=== PATIENT | male | born 1995 | race African-American/Black ===

== ENCOUNTER 2017-05-06 00:02 | Emergency (ER) | payer OTHER ==
[~2017-05-06] VITALS: Ht 180.3 cm; Wt 65.2 kg
[2017-05-06 00:16] VITALS: BP 128/77; PULSE 66; TEMP 36.8; O2SAT 98; Ht 180.3 cm; Wt 65.2 kg
--- NOTE | 2017-05-06 00:44 | EMERGENCY ROOM VISIT NOTE ---
History Report prepared by Merariibrhea: Vamsi Reddy Under the Supervision of: Dr. Maximiliano Kelsey M.D. First contact with patient: 00:26 Chief Complaint: MENTAL HEALTH EVALUATION Stated Complaint: DEPRESSED AND SPIRALING History of Present Illness The patient is a 21 year old male who presents to the Emergency Room with complaints of worsening depressive symptoms that began "a long time ago". Patient states that he was talking to his friends tonight about "being tired". He states his friends told him to come to the ER or they would call an ambulance for him. Patient states that the symptoms are caused by a mixture of school, relationships, and family issues. He denies current suicidal ideations. He admits to a history of suicidal ideations. Patient denies seeking psychiatric help in the past for his depression. Patient adds that he had a "couple beers tonight". He denies using any drugs. Patient denies taking daily medications. Patient denies taking Tylenol or Motrin recently. He denies playing sports. He states that he stays occupied "by sitting in his room". Patient adds that he is from [place]. He states that his parents do not know he is at the ER. Source of History: patient Onset: "long time ago" Position: other (Global) Timing: worsening Modifying Factors (Relieving): other (None) Note: He denies suicidal ideations. Review of Systems See HPI for pertinent positives & negatives. A total of 10 systems reviewed and were otherwise negative. Past Medical & Surgical No pertinent past medical and surgical history. Family History No pertinent family history. Social History Smoking Status: Never Smoker Occupation Status: [employer] student Current/Historical Medications No Active Prescriptions or Reported Meds Allergies Coded Allergies: No Known Allergies (Unverified , 05/06/17) Physical Exam Vital Signs Date Time Temp Pulse Resp B/P (MAP) Pulse Ox O2 Delivery O2 Flow Rate FiO2 05/06/17 00:16 36.8 66 18 128/77 98 Room Air Physical Exam GENERAL: Patient is well appearing and in no acute distress. HEENT: No acute trauma, normocephalic atraumatic, mucous membranes moist, no nasal congestion, no scleral icterus. NECK: No stridor, no adenopathy, no meningismus, trachea is midline. LUNGS: No dyspnea. Clear to auscultation and equal bilaterally. No wheeze, no rhonchi. HEART: Regular rate and rhythm. No murmurs, rubs, gallops appreciated. ABDOMEN: Soft, nontender, bowel sounds positive, no masses appreciated, no peritonitis. BACK: No midline tenderness, no CVA tenderness EXTREMITIES: Normal motion all extremities, no cyanosis, no edema. NEUROLOGIC: Alert and oriented, no acute motor or sensory deficits, no focal weakness, cranial nerves grossly intact. SKIN: No rash, no jaundice, no diaphoresis. PSYCH: Depressed, denies suicidal or homicidal ideations. Medical Decision & Procedures Laboratory Results 05/06/17 00:48 Red Blood Count 4.46, Mean Corpuscular Volume 92.6, Mean Corpuscular Hemoglobin 31.4, Mean Corpuscular Hemoglobin Concent 33.9, Mean Platelet Volume 10.2, Neutrophils (%) (Auto) 55.7, Lymphocytes (%) (Auto) 36.8, Monocytes (%) (Auto) 6.3, Eosinophils (%) (Auto) 0.5, Basophils (%) (Auto) 0.6, Neutrophils # (Auto) 4.35, Lymphocytes # (Auto) 2.88, Monocytes # (Auto) 0.49, Eosinophils # (Auto) 0.04, Basophils # (Auto) 0.05 05/06/17 00:48 Test 05/06/17 00:48 05/06/17 01:40 White Blood Count 7.82 K/uL (4.8-10.8) Red Blood Count 4.46 M/uL (4.7-6.1) Hemoglobin 14.0 g/dL (14.0-18.0) Hematocrit 41.3 % (42-52) Mean Corpuscular Volume 92.6 fL (80-100) Mean Corpuscular Hemoglobin 31.4 pg (25-34) Mean Corpuscular Hemoglobin Concent 33.9 g/dl (32-36) Platelet Count 231 K/uL (130-400) Mean Platelet Volume 10.2 fL (7.4-10.4) Neutrophils (%) (Auto) 55.7 % Lymphocytes (%) (Auto) 36.8 % Monocytes (%) (Auto) 6.3 % Eosinophils (%) (Auto) 0.5 % Basophils (%) (Auto) 0.6 % Neutrophils # (Auto) 4.35 K/uL (1.4-6.5) Lymphocytes # (Auto) 2.88 K/uL (1.2-3.4) Monocytes # (Auto) 0.49 K/uL (0.11-0.59) Eosinophils # (Auto) 0.04 K/uL (0-0.5) Basophils # (Auto) 0.05 K/uL (0-0.2) RDW Standard Deviation 41.1 fL (36.4-46.3) RDW Coefficient of Variation 12.2 % (11.5-14.5) Immature Granulocyte % (Auto) 0.1 % Immature Granulocyte # (Auto) 0.01 K/uL (0.00-0.02) Anion Gap 6.0 mmol/L (3-11) Est Creatinine Clear Calc Drug Dose 100.8 ml/min Estimated GFR () 114.9 Estimated GFR (Non- 99.1 BUN/Creatinine Ratio 11.1 (10-20) Calcium Level 9.2 mg/dl (8.5-10.1) Total Bilirubin 0.6 mg/dl (0.2-1) Aspartate Amino Transf (AST/SGOT) 20 U/L (15-37) Alanine Aminotransferase (ALT/SGPT) 19 U/L (12-78) Alkaline Phosphatase 58 U/L (45-117) Total Protein 7.5 gm/dl (6.4-8.2) Albumin 4.3 gm/dl (3.4-5.0) Globulin 3.2 gm/dl (2.5-4.0) Albumin/Globulin Ratio 1.3 (0.9-2) Thyroid Stimulating Hormone (TSH) 4.590 uIu/ml (0.300-4.500) Salicylates Level < 1.7 mg/dl (2.8-20) Acetaminophen Level < 2 ug/ml (10-30) Ethyl Alcohol mg/dL 3.0 mg/dl (0-3) Urine Color YELLOW Urine Appearance CLEAR (CLEAR) Urine pH 6.5 (4.5-7.5) Urine Specific [place] 1.033 (1.000-1.030) Urine Protein NEG (NEG) Urine Glucose (UA) NEG (NEG) Urine Ketones TRACE (NEG) Urine Occult Blood NEG (NEG) Urine Nitrite NEG (NEG) Urine Bilirubin NEG (NEG) Urine Urobilinogen NEG (NEG) Urine Leukocyte Esterase NEG (NEG) Urine WBC (Auto) 0 /hpf (0-5) Urine RBC (Auto) 0-4 /hpf (0-4) Urine Hyaline Casts (Auto) 1-5 /lpf (0-5) Urine Epithelial Cells (Auto) 0-5 /lpf (0-5) Urine Bacteria (Auto) NEG (NEG) Urine Opiates Screen NEG (NEG) Urine Methadone, Qualitative NEG (NEG) Urine Barbiturates NEG (NEG) Urine Phencyclidine (PCP) Level NEG (NEG) Ur Amphetamine/Methamphetamine NEG (NEG) MDMA (Ecstasy) Screen NEG (NEG) Urine Benzodiazepines Screen NEG (NEG) Urine Cocaine Metabolite NEG (NEG) Urine Marijuana (THC) NEG (NEG) Laboratory results as reviewed by me. ED Course 0030: The patient was evaluated in room A6. A complete history and physical exam was performed. 0247: Reevaluated the patient. Patient states that he feels safe going home and does not feel like he needs to be admitted. He does not feel like he will harm himself and agrees to call 911 if any worsening thoughts or issues come up. He states the he will follow up with [facility] psychiat[facility]. Discussed results and discharge instructions. He verbalized understanding and agreement. The patient is ready for discharge. Medical Decision Differential: Mood Disorder, Overdose, Infectious, Electrolyte Abnormality, Cardiac, Hepatic, Endocrine, Toxicologic, Neurologic, amongst other pathologies entertained. 21 yr old male arrives with complaint of worsening depression. After discussion it seems like depression has been ongoing for quite some time, just worsened over last few days or so with class load and social stressors. He has no plan for harming self, has made no act to do so and there is no 302. He is A&O, cooperative and not under the influence. His work up is benign. Stable in ED and interactive. Seen by mental health who agree safe for discharge and they will help set up outpatient. I repeated questioning with him at discharge and he is clear he wishes to go home, feels completely safe doing so, states he is not a risk of harming himself, and that he will call 911 or return if symptoms worsen. Medication Reconcilliation Current Medication List: was personally reviewed by me Blood Pressure Screening Patient's blood pressure: Normal blood pressure Blood pressure disposition: Did not require urgent referral Impression Primary Impression: Depression Scribe Attestation The scribe's documentation has been prepared under my direction and personally reviewed by me in its entirety. I confirm that the note above accurately reflects all work, treatment, procedures, and medical decision making performed by me. Departure Information Dispostion Home / Self-Care Prescriptions No Active Prescriptions or Reported Meds Referrals [facility] Patient Instructions ED Depression, My [facility] Additional Instructions We are always here to help. Call 911 or return immediately if worsening depression, thoughts of harm develop or other concerns.
[2017-05-06 01:02] LABS: BASO % 0.6 %; BASO ABS # 0.05 K/uL (0-0.2); EOS % 0.5 %; EOS ABS # 0.04 K/uL (0-0.5); HEMATOCRIT 41.3 % (42-52); IG# 0.01 K/uL (0.00-0.02); LYMPH % 36.8 %; LYMPH ABS # 2.88 K/uL (1.2-3.4); MEAN CELL VOLUME 92.6 fL (80-100); MEAN CORPUSCULAR HEMOGLOBIN 31.4 pg (25-34); MEAN CORPUSCULAR HGB CONC 33.9 g/dl (32-36); MEAN PLATELET VOLUME 10.2 fL (7.4-10.4); MONO % 6.3 %; MONO ABS # 0.49 K/uL (0.11-0.59); NEUT % 55.7 %; NEUT ABS # 4.35 K/uL (1.4-6.5); PLATELET COUNT 231 K/uL (130-400); RED CELL DISTRIBUTION WIDTH CV 12.2 % (11.5-14.5); RED CELL DISTRIBUTION WIDTH SD 41.1 fL (36.4-46.3); WHITE BLOOD COUNT 7.82 K/uL (4.8-10.8)
[2017-05-06 01:21] LABS: ALBUMIN 4.3 gm/dl (3.4-5.0); CALCIUM 9.2 mg/dl (8.5-10.1); CREATININE 1.06 mg/dl (0.60-1.40); POTASSIUM 3.6 mmol/L (3.5-5.1)
[2017-05-06 01:32] LABS: TOTAL PROTEIN 7.5 gm/dl (6.4-8.2)
== END 2017-05-06 02:56 | disposition home or self-care (01) ==
LOC: C.EDB 00:06 → C.EDA 02:56
DX: F32.9 Major depressive disorder, single episode, unspecified (principal)

== ENCOUNTER 2018-04-30 21:32 | Inpatient (IN) ==
[2018-04-30 22:07] LABS: Appearance Urine Clear (Clear); Bilirubin Urine Negative (Negative); Color Urine Yellow; Glucose Urine UA Negative (Negative); Ketones Urine Trace (Negative); Leukocyte Esterase Urine Negative (Negative); Nitrite Urine Negative (Negative); Protein Urine Negative (Negative); Specific Gravity Urine 1.025 (1.000-1.030); Urobilinogen Urine Negative (Negative)
[2018-04-30 22:25] LABS: Amphetamines+Metham, Urine Pos (Neg); Barbiturates, Urine Neg (Neg); Benzodiazepine, Urine Neg (Neg); Cocaine, Urine Neg (Neg); MDMA (Ecstacy), Urine Neg (Neg); Methadone, Urine Neg (Neg); Opiate, Urine Neg (Neg); Phencyclidine, Urine Neg (Neg)
[2018-04-30 23:18] LABS: Basophils # (auto) 0.05 K/uL (0-0.2); Basophils % (auto) 0.8 %; Eosinophils # (auto) 0.04 K/uL (0-0.5); Eosinophils % (auto) 0.7 %; Hematocrit (blood only) 40.4 % (42-52); Hemoglobin 13.8 g/dL (14.0-18.0); Immature Granulocytes # (auto) 0.01 K/uL (0.00-0.02); Immature Granulocytes % (auto) 0.2 %; Lymphocytes % (auto) 48.9 %; Mean Corpuscular Hgb Conc 34.2 g/dL (32-36); Mean Corpuscular Volume 93.3 fL (80-100); Mean Platelet Volume 11.1 fL (7.4-10.4); Monocytes # (auto) 0.36 K/uL (0.11-0.59); Monocytes % (auto) 5.9 %; Neutrophils # (auto) 2.68 K/uL (1.4-6.5); Neutrophils % (auto) 43.5 %; Platelet Count 231 K/uL (130-400); RDW Coefficient of Variation 12.2 % (11.5-14.5); RDW Standard Deviation 41.2 fL (36.4-46.3); Red Blood Count 4.33 M/uL (4.7-6.1); White Blood Count 6.14 K/uL (4.8-10.8)
[2018-04-30 23:34] LABS: Albumin Level 4.1 gm/dl (3.4-5.0); BUN Creatinine Ratio 12.8 (10-20); Calcium 8.7 mg/dl (8.5-10.1); Creatinine Clr Calc Pharmacy 99.3 ml/min; Est GFR (African American) 114.1; Est GFR (Non-African American) 98.4; Potassium 3.6 mmol/L (3.5-5.1)
[2018-04-30 23:45] LABS: Albumin Globulin Ratio 1.3 (0.9-2); Bilirubin,Total 0.5 mg/dl (0.2-1); Total Protein 7.1 gm/dl (6.4-8.2)
[2018-04-30 23:52] LABS: Acetaminophen < 2 ug/ml (10-30); Salicylate < 1.7 mg/dl (2.8-20)
--- NOTE | 2018-05-01 02:53 | Emergency Department Note ---
Entered by Kady Kerr acting as a scribe for History of Present Illness General Chief complaint: Mental Health Evaluation Stated complaint: MENTAL HEALTH Time Seen by Provider: 04/30/18 21:40 Source: patient History of Present Illness Onset (ago): month(s) (several) Location: head Pain Consistency: + other (episode) Quality: + other (mental health evaluation) Associated symptoms: + other (positive difficulty sleeping; positive loss of interest in activities; positive change in energy level; positive difficulty concentrating; positive eating less; positive feeling guilty; negatie cutting; negative thoughts of hurting others) The patient is a 22 year old male who presents to the Emergency Room with complaints of an episode of mental health evaluation. The patient states that he has had constant depression, anxiety, and suicidal thoughts for several months. The patient states that he has difficulty sleeping, loss of interest in activities, sometimes has a change in energy level, difficulty concentrating, and eating less. The patient states that he has been feeling guilty about his actions. The patient states that he has not taken more than his prescribed medications. The patient denies any recent cutting, but states that he has now been tying string tightly around his wrist to cause pain. The patient states that he has access to knives at home. The patient denies thoughts of hurting others. Home Medications Home Medications Medication Instructions Recorded Confirmed Type clonazepam 0.5 mg PO BID 03/24/18 04/30/18 History prazosin 1 mg PO DAILY 03/24/18 04/30/18 History sertraline [Zoloft] 100 mg PO DAILY 03/24/18 04/30/18 History zolpidem [Ambien] 10 mg PO HS 03/24/18 04/30/18 History dextroamphetamine-amphetamine 20 mg PO DAILY 04/30/18 04/30/18 History [Adderall XR] dextroamphetamine-amphetamine 40 mg PO DAILY 04/30/18 04/30/18 History [Adderall] Allergies Allergy/AdvReac Type Severity Reaction Status Date / Time No Known Allergies Allergy Unverified 04/30/18 23:46 Past Med/Surg History Social History Feels Safe at Home: Yes Smoking Status: Current every day smoker Tobacco Type: cigarettes and e- cigarettes Preferred Language: Telugu Review of Systems See HPI for pertinent positives & negatives. and A total of 10 systems reviewed and were otherwise negative Physical Exam Vital Signs Vital Signs - 24 hr 04/30/18 21:35 04/30/18 23:41 Temperature 36.8 C Temperature Source Oral Sepsis Recent Fever Within 48 Hours No Sepsis Action Taken by Nursing No Action Required Pulse Rate 75 Pulse Rate [Finger] 68 Respiratory Rate 16 18 Respiratory Effort / Characteristics Non-Labored Spontaneous Respiratory Depth Normal Blood Pressure 128/78 Blood Pressure [Right Arm] 107/66 Blood Pressure Mean 94 Blood Pressure Mean [Right Arm] 79 Pulse Oximetry 98 99 Oxygen Delivery Method Room Air Room Air GENERAL: The patient is oriented to person, place, and time. Appears well- developed and well-nourished. Does not appear distressed. HENT: Exam performed. Head: Normocephalic and atraumatic. Right Ear: External ear normal. No mastoid tenderness. Left Ear: External ear normal. No mastoid tenderness. Mouth/Throat: The oropharynx is clear and moist. No trismus in the jaw. No dental abscesses or uvula swelling. No oropharyngeal exudate or tonsillar abscesses. EYES: Conjunctivae and EOM are normal. Pupils are equal, round, and reactive to light. Right eye exhibits no discharge. Left eye exhibits no discharge. No scleral icterus. NECK: Normal range of motion. Neck supple. No JVD present. No spinous process tenderness present. No carotid bruit present. No rigidity. No tracheal deviation and normal range of motion present. No Brudzinski's sign and no Kernig 's sign noted. CV: Normal rate, regular rhythm, normal heart sounds and intact distal pulses. There is no peripheral edema. Palpable radial pulses bue. PULM/CHEST: Effort normal and breath sounds normal. No respiratory distress. No stridor. There are no wheezes or rales. Chest Wall: Patient exhibits no tenderness. ABD: The abdomen is soft. Bowel sounds are normal. There is no distension. No mass is present. There is no tenderness. There is no rebound, no guarding, no Pruitt's sign and no tenderness at McBurney's point. Rovsig negative MUSC/SKEL: Normal range of motion. There is no peripheral edema, tenderness or deformity. LYMPH: No cervical adenopathy. NEURO: Patient is alert and oriented to person, place, and time. Normal strength. No cranial nerve deficit or sensory deficit. Coordination and gait normal. GCS eye subscore is 4. GCS verbal subscore is 5. GCS motor subscore is 6. cerbellar tests wnl. SKIN: Skin is warm and dry. Patient is not diaphoretic. PSYCH: The patient is suicidal and depressed. Behavior is normal. Judgment and thought content normal. Course 2149: Past medical records reviewed. The patient was evaluated in room A8, and a complete history and physical examination were performed. 0243: vss. patient cleared medically. awaiting psychiatric eval. case signed out to Dr. Kelsey. Medical Decision Making Medical Records Attestation: I reviewed the patient's medical records. Home Medications Current Medication List: was personally reviewed by me Laboratory Data Attestation: I reviewed the patient's lab results. Result diagrams: 04/30/18 22:05 04/30/18 22:05 Lab Results 04/30/18 04/30/18 04/30/18 Range/Units 21:43 21:43 22:05 WBC 6.14 (4.8-10.8) K/uL RBC 4.33 L (4.7-6.1) M/uL Hgb 13.8 L (14.0-18.0) g/dL Hct 40.4 L (42-52) % MCV 93.3 (80-100) fL MCH 31.9 (25-34) pg MCHC 34.2 (32-36) g/dL RDW Std Deviation 41.2 (36.4-46.3) fL RDW Coeff of [place] 12.2 (11.5-14.5) % Plt Count 231 (130-400) K/uL MPV 11.1 H (7.4-10.4) fL Immature Gran % (Auto) 0.2 % Neut % (Auto) 43.5 % Lymph % (Auto) 48.9 % [place] % (Auto) 5.9 % Eos % (Auto) 0.7 % Baso % (Auto) 0.8 % Immature Gran # (Auto) 0.01 (0.00-0.02) K/uL Neut # (Auto) 2.68 (1.4-6.5) K/uL Lymph # (Auto) 3.00 (1.2-3.4) K/uL [place] # (Auto) 0.36 (0.11-0.59) K/uL Eos # (Auto) 0.04 (0-0.5) K/uL Baso # (Auto) 0.05 (0-0.2) K/uL Sodium (136-145) mmol/L Potassium (3.5-5.1) mmol/L Chloride (98-107) mmol/L Carbon Dioxide (21-32) mmol/L Anion Gap (3-11) BUN (7-18) mg/dl Creatinine (0.6-1.4) mg/dl Est Cr Clr Drug Dosing ml/min Est GFR ( Amer) Est GFR (Non-Af Amer) BUN/Creatinine Ratio (10-20) Glucose (70-99) mg/dl Calcium (8.5-10.1) mg/dl Total Bilirubin (0.2-1) mg/dl AST (15-37) U/L ALT (12-78) U/L Alkaline Phosphatase (45-117) U/L Total Protein (6.4-8.2) gm/dl Albumin (3.4-5.0) gm/dl Globulin (2.5-4.0) gm/dl Albumin/Globulin Ratio (0.9-2) TSH (0.300-4.500) uIu/ml Urine Color Yellow Urine Appearance Clear (Clear) Urine pH 7.0 (4.5-7.5) Ur Specific [place] 1.025 (1.000-1.030) Urine Protein Negative (Negative) Urine Glucose (UA) Negative (Negative) Urine Ketones Trace H (Negative) Urine Blood Negative (Negative) Urine Nitrite Negative (Negative) Urine Bilirubin Negative (Negative) Urine Urobilinogen Negative (Negative) Ur Leukocyte Esterase Negative (Negative) Salicylates (2.8-20) mg/dl Urine Opiates Screen Neg (Neg) Ur Methadone, Qual Neg (Neg) Acetaminophen (10-30) ug/ml Urine Barbiturates Neg (Neg) Ur Phencyclidine (PCP) Neg (Neg) U Amphetamin/Meth Scrn Pos H (Neg) MDMA (Ecstasy) Screen Neg (Neg) U Benzodiazepines Scrn Neg (Neg) Ur Cocaine Metabolite Neg (Neg) U Marijuana (THC) Screen Pos H (Neg) Ethyl Alcohol mg/dL (0-3) mg/dl 04/30/18 04/30/18 04/30/18 Range/Units 22:05 22:05 22:05 WBC (4.8-10.8) K/uL RBC (4.7-6.1) M/uL Hgb (14.0-18.0) g/dL Hct (42-52) % MCV (80-100) fL MCH (25-34) pg MCHC (32-36) g/dL RDW Std Deviation (36.4-46.3) fL RDW Coeff of [place] (11.5-14.5) % Plt Count (130-400) K/uL MPV (7.4-10.4) fL Immature Gran % (Auto) % Neut % (Auto) % Lymph % (Auto) % [place] % (Auto) % Eos % (Auto) % Baso % (Auto) % Immature Gran # (Auto) (0.00-0.02) K/uL Neut # (Auto) (1.4-6.5) K/uL Lymph # (Auto) (1.2-3.4) K/uL [place] # (Auto) (0.11-0.59) K/uL Eos # (Auto) (0-0.5) K/uL Baso # (Auto) (0-0.2) K/uL Sodium 139 (136-145) mmol/L Potassium 3.6 (3.5-5.1) mmol/L Chloride 105 (98-107) mmol/L Carbon Dioxide 30 (21-32) mmol/L Anion Gap 5.0 (3-11) BUN 14 (7-18) mg/dl Creatinine 1.06 (0.6-1.4) mg/dl Est Cr Clr Drug Dosing 99.3 ml/min Est GFR ( Amer) 114.1 Est GFR (Non-Af Amer) 98.4 BUN/Creatinine Ratio 12.8 (10-20) Glucose 82 (70-99) mg/dl Calcium 8.7 (8.5-10.1) mg/dl Total Bilirubin 0.5 (0.2-1) mg/dl AST 28 (15-37) U/L ALT 22 (12-78) U/L Alkaline Phosphatase 57 (45-117) U/L Total Protein 7.1 (6.4-8.2) gm/dl Albumin 4.1 (3.4-5.0) gm/dl Globulin 3.0 (2.5-4.0) gm/dl Albumin/Globulin Ratio 1.3 (0.9-2) TSH 5.680 H (0.300-4.500) uIu/ml Urine Color Urine Appearance (Clear) Urine pH (4.5-7.5) Ur Specific [place] (1.000-1.030) Urine Protein (Negative) Urine Glucose (UA) (Negative) Urine Ketones (Negative) Urine Blood (Negative) Urine Nitrite (Negative) Urine Bilirubin (Negative) Urine Urobilinogen (Negative) Ur Leukocyte Esterase (Negative) Salicylates < 1.7 L (2.8-20) mg/dl Urine Opiates Screen (Neg) Ur Methadone, Qual (Neg) Acetaminophen < 2 L (10-30) ug/ml Urine Barbiturates (Neg) Ur Phencyclidine (PCP) (Neg) U Amphetamin/Meth Scrn (Neg) MDMA (Ecstasy) Screen (Neg) U Benzodiazepines Scrn (Neg) Ur Cocaine Metabolite (Neg) U Marijuana (THC) Screen (Neg) Ethyl Alcohol mg/dL < 3.0 (0-3) mg/dl Blood Pressure Blood Pressure Findings: Normal blood pressure MDM Narrative vss. patient cleared medically. awaiting psychiatric eval. case signed out to Dr. Kelsey. Impression & Plan Depression Discharge Plan Visit Data Chief Complaint: Mental Health Evaluation Stated Complaint: MENTAL HEALTH ED Provider: Maximiliano Kelsey Discharge Problem: Depression Patient Disposition: Still a Patient Forms Stand Alone Forms: My [facility] Prescriptions Prescriptions: No Action prazosin 1 mg capsule 1 mg PO DAILY RF: 0 clonazepam 0.5 mg tablet 0.5 mg PO BID RF: 0 sertraline [Zoloft] 100 mg Tablet 100 mg PO DAILY RF: 0 zolpidem [Ambien] 10 mg Tablet 10 mg PO HS RF: 0 dextroamphetamine-amphetamine [Adderall XR] 20 mg Capsule,Extended Release 24hr 20 mg PO DAILY RF: 0 dextroamphetamine-amphetamine [Adderall] 20 mg Tablet 40 mg PO DAILY RF: 0 Referrals Referrals: [facility] [Primary Care Provider] - The scribe's documentation has been prepared under my direction and personally reviewed by me in its entirety. I confirm that the note above accurately reflects all work, treatment, procedures, and medical decision making performed by me.
[2018-05-01] MEDS ORDERED: SODIUM CHLORIDE 0.65% NA SOLN 45 ML (OCEAN) PRN (05:27)
[2018-05-01] MEDS ORDERED: BISMUTH SUBSALICYLATE PER ML OMNICELL CHARGE PO PRN (05:27)
[2018-05-01] MEDS ORDERED: MAGNESIUM HYDROXIDE SUSP 30 ML UDC PO PRN (05:27)
[2018-05-01] MEDS ORDERED: ALUMINUM/MAGNESIUM SUSP 30 ML UDC PO PRN (05:27)
[2018-05-01] MEDS ORDERED: ACETAMINOPHEN 325 MG TAB PO PRN (05:27)
[2018-05-01] MEDS ORDERED: clonazePAM 0.5 MG TAB PO PRN ×2 (05:28→13:00)
--- NOTE | 2018-05-01 06:46 | Emergency Department Note ---
ED Visit Note ED Physician Sign Out Note: 22 yr old male with worsening depression who arrived earlier in the evenign requesting mental health evaluation and treatment. Initially evaluated and medically cleared by Dr Bermudez who signed patient out to me pending mental health evaluation. Stable without issue overnight and accepted to [address] [place] [address] for further management. Maximiliano Kelsey MD
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
[2018-05-01] MEDS ORDERED: NICOTINE POLACRILEX 2 MG GUM MT PRN (13:01)
[2018-05-01] MEDS: lamoTRIgine 25 MG TAB PO SCH (21:21)
[2018-05-02 08:29] LABS: T4 Free Thyroxine 0.95 ng/dl (0.8-1.6)
[2018-05-02] MEDS: SERTRALINE HCL 100 MG TABLET PO SCH (09:12)
--- NOTE | 2018-05-02 14:01 | Psychiatric Progress Note ---
Date of Service May 02, 2018 Impression / Recommendations Impression Adjusting to the support and structure of the milieu, but mood remains irritable , with SI. Lamictal initiated yesterda and will follow a standard titration to avoid side effects. Will also focus on coping strategies, arrange for meeting with girlfriend with whom he lives and aftercare. (1) Bipolar II disorder with rapid cyclin/6 Differential includes major depressive disorder, GHANSHYAM - Reduce Zoloft to 50 mg daily - Hold Adderall - Start Lamictal 25 mg HS - Q 15 min checks for safety - Encourage participation in group and individual counseling - Obtain records from OP providers and coordinate aftercare - Contact Office of Student Affairs as needed - Assist the patient to explore healthy coping strategies - Safety planning 05/02 - Continue current meds - Continue to explore healthy coping strategies - Family meeting with girlfriend (2) Cannabis abuse: 05/01 - Recommend abstinence (3) Tobacco abuse disorder: 05/01 - Will provide Nicorette gum for nicotine withdrawal (4) Elevated TSH: 05/01 - Will repeat with a free T4 05/02 - TSH and free T4 today WNL. Inventory Assets Strengths: Willingness to engage in treatment, lives with girlfriend Needs: Healthy coping strategies Risk Factors Assessment Male: Yes : No Do You Have Access To A Gun?: No Health Problems: No Mental Health Diagnoses: Yes Substance Use Disorders: Yes Previous Attempt: No Family History of Suicide: No Previous Psychiatric Hospitalization: No Smoker: Yes Protective Factors Assessment : No Responsible for Young Children: No Employed: No Stable Relationships: Yes Supportive Family: Yes Good Rapport with Provider: Yes Interval History Identifying Information 22 yo male, admitted voluntarily with depression, mood swings, and suicidality in the setting of school and financial stress. Chief Complaint "I've been irritated all day. ". Review of Systems Sleep Information Total Hours of Sleep: 6 Sleep Comments: pt given vistaril per rn. pt on q-15 minute checks Meal Information Percent Meal Consumed - Breakfast: 80 Percent Meal Consumed - Lunch: 90 Percent Meal Consumed - Dinner: 75 Subjective Subjective Patient was seen & assessed and interval progress reviewed with Treatment Team. The patient says that he has felt irritable all day after being woken up for labs that took 3 painful sticks. He has remained irritable saying that he has little patience for his peers. He admits that it triggered thoughts of not wanting to be alive "but I talked myself out of it". He also just took a prn klonopin that he thinks is helping. He spoke with his GF last evening, but she did not visit. He does not want his parents involved in his treatment. He recieved his first dose of Lamictal, denies side effects. He rates his mood 3/ 10 Physical Exam Psychiatric Orientation: alert and cooperative Apperance: appropriately dressed and appropriately groomed Eye Contact: + fair eye contact Motor Behavior: steady gait and station and no abnormal motor movements Speech: normal rate/rhythm/volume of speech Affect: + depressed affect and + flat affect Mood: + irritable mood Thought Process: goal directed thought process Thought Content: reality based without delusions Suicidal Thoughts: denies suicidal plan and denies suicidal intent; + reports suicidal thoughts Homicidal Thoughts: denies homicidal thoughts Hallucinations: no auditory hallucinations and no visual hallucinations Cognition: recent memory grossly intact, remote memory grossly intact, attention grossly intact and language grossly intact Estimated Intelligence: average estimated intelligence Insight: + impaired insight Judgement: + impaired judgement Vital Signs (Past 24 Hours) Last Vital Signs Temp 36.5 C 05/02/18 06:45 Pulse 65 05/02/18 06:46 Resp 16 05/02/18 06:45 BP 100/67 05/02/18 06:46 Pulse Ox 99 05/01/18 05:31 Results & Data Laboratory Results Laboratory Results - last 24 hr 05/02/18 07:25 TSH 2.100 Free T4 0.95 Current Inpatient Medications Current Inpatient Medications: Current Inpatient Medications Acetaminophen (Tylenol) 650 mg PO Q4H PRN PRN Reason: Headache or Minor Fever Stop: 05/31/18 05:26 Al Hydrox/Mg Hydrox/Simethicone (Maalox) 30 ml PO Q4H PRN PRN Reason: GI Upset Stop: 05/31/18 05:26 Bismuth Subsalicylate (Kaopectate) 15 ml PO PRN PRN PRN Reason: Loose Stool Stop: 05/31/18 05:26 Clonazepam (Klonopin) 0.5 mg PO BID PRN PRN Reason: Anxiety Stop: 05/31/18 05:27 Last Admin: 05/02/18 12:06 Dose: 0.5 mg Hydroxyzine HCl (Vistaril) 50 mg PO HSZ PRN PRN Reason: Insomnia Stop: 05/31/18 05:26 Last Admin: 05/01/18 23:05 Dose: 50 mg Hydroxyzine HCl (Vistaril) 25 mg PO Q4H PRN PRN Reason: Anxiety Stop: 05/31/18 05:26 Lamotrigine (Lamictal) 25 mg PO HS GOKUL Stop: 05/31/18 21:59 Last Admin: 05/01/18 21:21 Dose: 25 mg Magnesium Hydroxide (Milk Of Magnesia) 30 ml PO DAILY PRN PRN Reason: Heartburn Stop: 05/31/18 05:26 Nicotine Polacrilex (Nicorette 2mg) 1 piece MT PRN PRN PRN Reason: nicotine withdrawal Stop: 05/31/18 13:00 Sertraline HCl (Zoloft) 50 mg PO DAILY GOKUL Stop: 06/01/18 08:59 Last Admin: 05/02/18 09:12 Dose: 50 mg Sodium Chloride ([place] Nasal) 1 - 2 sprays NA PRN PRN PRN Reason: Nasal Dryness/Congestion Stop: 05/31/18 05:26 Post Discharge Appointments Primary Care Physician Name Of Family Doctor: Denies Psychiatrist Name of Psychiatrist: [facility] - Dr Chadwick MD Psychiatrist's Psychiatric Appointment Comment: [address], [address], [address], [place] [address] Therapist Name of Therapist: Kia Wall [facility] Therapist's Date of Therapist Appointment: 05/07/18 Time of Therapist Appointment: 2pm Therapy Appointment Comment: [address] [facility] [address], [facility] [id number] Learning Disabilities Teacher Name of Learning Disabilities Teacher: [facility] Phone Number for Learning Disabilities Teacher: [phone] Date of Appointment with Learning Disabilities Teacher: 05/06/18 Time of Appointment with Learning Disabilities Teacher: 1:30pm Case Management Appointment Comment: [address] [place] [address] CPT Code CPT Code 57923
[2018-05-02] MEDS: lamoTRIgine 25 MG TAB PO SCH (21:08)
--- NOTE | 2018-05-03 09:49 | Psychiatric Progress Note ---
Date of Service May 03, 2018 Impression / Recommendations Impression Admittedly less irritable today. Seen interacting with peers and participating in programming. Denies any medication concerns or side effects, so will continue sertraline 50mg and lamotrigine at standard titration. Meeting scheduled with girlfriend tomorrow, he denies anxiety surrounding this or specific topics he wishes to discuss. Mood reportedly improving, but is still unable to deny SI admitting to thoughts as recently as yesterday. He is at increased risk of harm to self if discharged prematurely without adequate involvement of supports and aftercare planning. (1) Bipolar II disorder with rapid cyclin/6 Differential includes major depressive disorder, GHANSHYAM - Reduce Zoloft to 50 mg daily - Hold Adderall - Start Lamictal 25 mg HS - Q 15 min checks for safety - Encourage participation in group and individual counseling - Obtain records from OP providers and coordinate aftercare - Contact Office of Student Affairs as needed - Assist the patient to explore healthy coping strategies - Safety planning 05/02 - Continue current meds - Continue to explore healthy coping strategies - Family meeting with girlfriend 05/03 - Continue current medications - Commended on group participation today - Family meeting with girlfriend scheduled for tomorrow - Solidify aftercare plans (2) Cannabis abuse: 05/01 - Recommend abstinence (3) Tobacco abuse disorder: 05/01 - Will provide Nicorette gum for nicotine withdrawal (4) Elevated TSH: 05/01 - Will repeat with a free T4 05/02 - TSH and free T4 today WNL. Inventory Assets Strengths: Willingness to engage in treatment, lives with girlfriend Needs: Healthy coping strategies Risk Factors Assessment Male: Yes : No Do You Have Access To A Gun?: No Health Problems: No Mental Health Diagnoses: Yes Substance Use Disorders: Yes Previous Attempt: No Family History of Suicide: No Previous Psychiatric Hospitalization: No Smoker: Yes Protective Factors Assessment : No Responsible for Young Children: No Employed: No Stable Relationships: Yes Supportive Family: Yes Good Rapport with Provider: Yes Interval History Identifying Information 22 yo male, admitted voluntarily with depression, mood swings, and suicidality in the setting of school and financial stress. Chief Complaint "Um...better today. A lot better than yesterday". Review of Systems Notes Constitutional: denied Cardiovascular: denied Respiratory: denied Gastrointestinal: denied Neurological: denied Psychiatric: denies symptoms other than stated above Total of at least 10 systems reviewed, pertinent positives as above and in HPI. Sleep Information Total Hours of Sleep: 6.25 Sleep Comments: pt. requested and received a prn hs dose of vistaril for sleep aid Meal Information Percent Meal Consumed - Breakfast: 80 Percent Meal Consumed - Lunch: 90 Percent Meal Consumed - Dinner: 100 Subjective Subjective Patient was seen & assessed and interval progress reviewed with Treatment Team. Staff reports the patient has continued to appear depressed. He is scheduled fro a meeting with his girlfriend tomorrow. Pt states he is doing well today. He admits to being agitated yesterday, but has not noticed that feeling as much today. He states he if finding groups helpful for encouraging socialization and feels that his "self worth" has been improving as well. He states, "it encouraging to hear people's thoughts about things that I share." Pt's girlfriend has been visiting regularly and is planning to attend a support meeting tomorrow. Pt denies any specific concerns today. He states his outlook is more optimistic, not outright denying SI, but stating, "I'm starting to see the value in life more." SI occurs when he is unable to distract himself with groups or other activities. Physical Exam Psychiatric Orientation: alert, oriented x 3 and cooperative Apperance: appropriately dressed and appropriately groomed Eye Contact: good eye contact Motor Behavior: steady gait and station and no abnormal motor movements Speech: normal rate/rhythm/volume of speech Affect: + depressed affect (but smiling on occasion) Mood: + depressed mood ("better than yesterday" and "lower when I'm not distracted with things") Thought Process: goal directed thought process, linear/logical thought process and clear/coherent thought process Thought Content: reality based without delusions Suicidal Thoughts: + reports suicidal thoughts (hopelessness reportedly improving, but unable to clearly deny SI, "well, I guess when I was in the shower I was thinking about it") Homicidal Thoughts: denies homicidal thoughts Hallucinations: no auditory hallucinations and no visual hallucinations Cognition: recent memory grossly intact, remote memory grossly intact, attention grossly intact and language grossly intact Estimated Intelligence: consistent with education level Insight: + fair insight Judgement: + fair judgement Vital Signs (Past 24 Hours) Last Vital Signs Temp 36.6 C 05/03/18 06:37 Pulse 83 05/03/18 06:37 Resp 16 05/03/18 06:37 BP 99/62 L 05/03/18 06:37 Pulse Ox 99 05/01/18 05:31 Results & Data Current Inpatient Medications Current Inpatient Medications: Current Inpatient Medications Acetaminophen (Tylenol) 650 mg PO Q4H PRN PRN Reason: Headache or Minor Fever Stop: 05/31/18 05:26 Al Hydrox/Mg Hydrox/Simethicone (Maalox) 30 ml PO Q4H PRN PRN Reason: GI Upset Stop: 05/31/18 05:26 Bismuth Subsalicylate (Kaopectate) 15 ml PO PRN PRN PRN Reason: Loose Stool Stop: 05/31/18 05:26 Clonazepam (Klonopin) 0.5 mg PO BID PRN PRN Reason: Anxiety Stop: 05/31/18 05:27 Last Admin: 05/02/18 12:06 Dose: 0.5 mg Hydroxyzine HCl (Vistaril) 50 mg PO HSZ PRN PRN Reason: Insomnia Stop: 05/31/18 05:26 Last Admin: 05/02/18 23:35 Dose: 50 mg Hydroxyzine HCl (Vistaril) 25 mg PO Q4H PRN PRN Reason: Anxiety Stop: 05/31/18 05:26 Lamotrigine (Lamictal) 25 mg PO HS GOKUL Stop: 05/31/18 21:59 Last Admin: 05/02/18 21:08 Dose: 25 mg Magnesium Hydroxide (Milk Of Magnesia) 30 ml PO DAILY PRN PRN Reason: Heartburn Stop: 05/31/18 05:26 Nicotine Polacrilex (Nicorette 2mg) 1 piece MT PRN PRN PRN Reason: nicotine withdrawal Stop: 05/31/18 13:00 Sertraline HCl (Zoloft) 50 mg PO DAILY GOKUL Stop: 06/01/18 08:59 Last Admin: 05/02/18 09:12 Dose: 50 mg Sodium Chloride ([place] Nasal) 1 - 2 sprays NA PRN PRN PRN Reason: Nasal Dryness/Congestion Stop: 05/31/18 05:26 Post Discharge Appointments Primary Care Physician Name Of Family Doctor: Denies Psychiatrist Name of Psychiatrist: [facility] - Dr Chadwick MD Psychiatrist's Psychiatric Appointment Comment: [address], [address], [address], [place] [address] Therapist Name of Therapist: [facility] Therapist's Date of Therapist Appointment: 05/07/18 Time of Therapist Appointment: 2pm Therapy Appointment Comment: [address], [place] [address] Account Support Manager Name of Account Support Manager: [facility] - [facility] Phone Number for Account Support Manager: [phone] Date of Appointment with Account Support Manager: 05/06/18 Time of Appointment with Account Support Manager: 1:30pm Case Management [facility]ment [facility] [address] [facility] [place] [address] CPT Code CPT Code 31070
[2018-05-03] MEDS: SERTRALINE HCL 100 MG TABLET PO SCH (09:52)
[2018-05-03] MEDS: lamoTRIgine 25 MG TAB PO SCH (21:11)
[2018-05-03 23:21] LABS: Amphetamine Urine, Confirm 9770 NG/ML (CUTOF=250); Marijuana Quant, GCMS Urine 105 NG/ML (CUTOFF=5)
[2018-05-04] MEDS: SERTRALINE HCL 50 MG TABLET PO SCH (08:41)
--- NOTE | 2018-05-04 12:14 | Psychiatric Progress Note ---
Date of Service May 04, 2018 Impression / Recommendations Impression Patient is stating he is not feeling as poorly but not fully well, seems to have a veneer of sociability when with peers but quickly labile to tears and sadness when asked more pointed questions about area where he feels he is failing. Affirmed his willingness to begin to talk about this. Continue sertraline 50mg and lamictal 25mg standard titration with movement to 50m on , in the meantime will move lamictal to AM dosing by taking 12.5mg tonight and 25mg starting tomorrow AM to put on same schedule as sertraline. DIscussed option of doxepin to try for sleep,25mg is lowest dose inpatient. .Mood reportedly improving, but is still unable to deny SI admitting to thoughts as recently as yesterday. He is at increased risk of harm to self if discharged prematurely without adequate involvement of supports and aftercare planning. (1) Bipolar II disorder with rapid cyclin/6 Differential includes major depressive disorder, GHANSHYAM - Reduce Zoloft to 50 mg daily - Hold Adderall - Start Lamictal 25 mg HS - Q 15 min checks for safety - Encourage participation in group and individual counseling - Obtain records from OP providers and coordinate aftercare - Contact Office of Student Affairs as needed - Assist the patient to explore healthy coping strategies - Safety planning 05/02 - Continue current meds - Continue to explore healthy coping strategies - Family meeting with girlfriend 05/03 and 05/03 - Continue current medications - Commended on group participation today - Family meeting with girlfriend scheduled for tomorrow - Solidify aftercare plans - 05/04 trial of doxepin for sleep (2) Cannabis abuse: 05/01 - Recommend abstinence (3) Tobacco abuse disorder: 05/01 - Will provide Nicorette gum for nicotine withdrawal (4) Elevated TSH: 05/01 - Will repeat with a free T4 05/02 - TSH and free T4 today WNL. Inventory Assets Strengths: Willingness to engage in treatment, lives with girlfriend Needs: Healthy coping strategies Risk Factors Assessment Male: Yes : No Do You Have Access To A Gun?: No Health Problems: No Mental Health Diagnoses: Yes Substance Use Disorders: Yes Previous Attempt: No Family History of Suicide: No Previous Psychiatric Hospitalization: No Smoker: Yes Protective Factors Assessment : No Responsible for Young Children: No Employed: No Stable Relationships: Yes Supportive Family: Yes Good Rapport with Provider: Yes Interval History Identifying Information 22 yo male, admitted voluntarily with depression, mood swings, and suicidality in the setting of school and financial stress. Chief Complaint "I was irritable this AM, then anxious and now I feel a little bit better". Review of Systems Sleep Information Total Hours of Sleep: 7 Sleep Comments: pt. requested and received a prn hs dose of vistaril for sleep aid Meal Information Percent Meal Consumed - Breakfast: 100 Percent Meal Consumed - Lunch: 100 Percent Meal Consumed - Dinner: 100 Subjective Subjective Patient was seen & assessed and interval progress reviewed with Treatment Team Staff notes patient is "less agitated" using patinet's words, but ongoing "irritability" about hi He has plan for meeting [facility] GF today as part of his family meeting. He was asking about prazosin having taken this in the past 2- 3mg/hs. Met with patient he notes he did not sleep well last night did not take hydroxyzine to avoid AM hangover and irritabilty that occurs when he is groggy. Instead he woke several times, reporting longstanding vivid dreams that are moreson on sertraline (no change with lamictal 25mg to date), and so this AM was tired and irritated with individuals talking to his this AM. He was then anxious about his family meeting, but "now I feel better." He notes that he took prazosin for vivid dreams "some things that make me anxious, such as dreaming that my GF has done something to hurt me then waking up and obsessing about it" He states the prazosin 1mg did not help, the 2-3 mg helped sometime alongside Ambien but he would wake in the morning feeling "poorly...not well." He feels the vistaril helps but causesAM lag He has trial ambien, atarax, gabapentin and trazodone (AM grogginess). His mood is "variable" as noting above and he become tearful holding back when asked what he wants to do about school after discharge. He states "that is something I was trying to sort through in my family meeting and need to keep thinking about...I have work to catch up on and don't feel I can jump right in..." He is motivated to work with his therapist at [facility] and to retutn to Dr Genao but plans to seek out alternative psychiatric care overtime. Physical Exam Psychiatric Orientation: alert, oriented x 3 and cooperative Apperance: appropriately dressed and appropriately groomed Eye Contact: good eye contact Motor Behavior: steady gait and station and no abnormal motor movements Speech: normal rate/rhythm/volume of speech Affect: + depressed affect (but smiling on occasion, tearful when asked a pointed questions revealing possibly a superficial nature to his smiles and affability) and + anxious affect Mood: + depressed mood ("getting better but still variable it moves depending on what is happening"), + anxious mood and + irritable mood Thought Process: goal directed thought process, linear/logical thought process and clear/coherent thought process Thought Content: reality based without delusions Suicidal Thoughts: denies suicidal plan and denies suicidal intent; + reports suicidal thoughts (hopelessness is improving, but unable to clearly deny SI noting it is still on his mind in a vague way but denies overt intention or plan this moment) Homicidal Thoughts: denies homicidal thoughts Hallucinations: no auditory hallucinations and no visual hallucinations Cognition: recent memory grossly intact, remote memory grossly intact, attention grossly intact and language grossly intact Estimated Intelligence: average estimated intelligence and consistent with education level Insight: + fair insight Judgement: + fair judgement Vital Signs (Past 24 Hours) Last Vital Signs Temp 36.7 C 05/04/18 06:00 Pulse 67 05/04/18 07:02 Resp 16 05/04/18 06:00 BP 99/66 L 05/04/18 07:02 Pulse Ox 99 05/01/18 05:31 Results & Data Laboratory Results Laboratory Results - last 24 hr 04/30/18 21:43 U Amphetamines Confirm 9770 A U Methamphetamin Confrm NEGATIVE U Marijuana THC Carboxy 105 A Current Inpatient Medications Current Inpatient Medications: Current Inpatient Medications Acetaminophen (Tylenol) 650 mg PO Q4H PRN PRN Reason: Headache or Minor Fever Stop: 05/31/18 05:26 Al Hydrox/Mg Hydrox/Simethicone (Maalox) 30 ml PO Q4H PRN PRN Reason: GI Upset Stop: 05/31/18 05:26 Bismuth Subsalicylate (Kaopectate) 15 ml PO PRN PRN PRN Reason: Loose Stool Stop: 05/31/18 05:26 Clonazepam (Klonopin) 0.5 mg PO BID PRN PRN Reason: Anxiety Stop: 05/31/18 05:27 Last Admin: 05/02/18 12:06 Dose: 0.5 mg Hydroxyzine HCl (Vistaril) 50 mg PO HSZ PRN PRN Reason: Insomnia Stop: 05/31/18 05:26 Last Admin: 05/02/18 23:35 Dose: 50 mg Hydroxyzine HCl (Vistaril) 25 mg PO Q4H PRN PRN Reason: Anxiety Stop: 05/31/18 05:26 Lamotrigine (Lamictal) 25 mg PO HS GOKUL Stop: 05/31/18 21:59 Last Admin: 05/03/18 21:11 Dose: 25 mg Magnesium Hydroxide (Milk Of Magnesia) 30 ml PO DAILY PRN PRN Reason: Heartburn Stop: 05/31/18 05:26 Nicotine Polacrilex (Nicorette 2mg) 1 piece MT PRN PRN PRN Reason: nicotine withdrawal Stop: 05/31/18 13:00 Sertraline HCl (Zoloft) 50 mg PO DAILY GOKUL Stop: 06/03/18 08:59 Last Admin: 05/04/18 08:41 Dose: 50 mg Sodium Chloride ([place] Nasal) 1 - 2 sprays NA PRN PRN PRN Reason: Nasal Dryness/Congestion Stop: 05/31/18 05:26 Post Discharge Appointments Primary Care Physician Name Of Family Doctor: Denies Psychiatrist Name of Psychiatrist: [facility] - Dr Chadwick MD Psychiatrist's Date of Appointment with Psychiatrist: 05/09/18 Time of Appointment with Psychiatrist: 2:00 p.m. Psychiatric Appointment Comment: [address], [address], [place] [address] Therapist Name of Therapist: [facility] Therapist's Date of Therapist Appointment: 05/07/18 Time of Therapist Appointment: 2pm Therapy Appointment Comment: [address], [place] [address] Avionics Systems Engineer Name of Avionics Systems Engineer: [facility] - [facility] Phone Number for Avionics Systems Engineer: [phone] Date of Appointment with Avionics Systems Engineer: 05/06/18 Time of Appointment with Avionics Systems Engineer: 1:30pm Case Management Appointment Comment: [address] [place] [address] Contact Information Discharge Discharge Address: [facility] [place] [address] CPT Code CPT Code 21054
[2018-05-04] MEDS: DOXEPIN HCL 25 MG CAPSULE PO SCH (21:39)
[2018-05-04] MEDS: lamoTRIgine 25 MG TAB PO SCH (21:39)
[2018-05-05] MEDS: SERTRALINE HCL 50 MG TABLET PO SCH (08:47)
--- NOTE | 2018-05-05 15:37 | Psychiatric Progress Note ---
Date of Service May 05, 2018 Impression / Recommendations Impression Patient is stating he is not feeling as poorly but not fully well, seems to have a veneer of sociability when with peers but quickly labile to tears and sadness when asked more pointed questions about area where he feels he is failing. Affirmed his willingness to begin to talk about this. Continue sertraline 50mg and lamictal 25mg standard titration with movement to 50m on , and doxepin 25mg/hs is lowest dose inpatient. .Mood reportedly improving, he denies SI today, but admitting to thoughts as recently as yesterday. He is at increased risk of harm to self if discharged prematurely without adequate involvement of supports and aftercare planning needs to be secured. (1) Bipolar II disorder with rapid cyclin/6 Differential includes major depressive disorder, GHANSHYAM - Reduce Zoloft to 50 mg daily - Hold Adderall - Start Lamictal 25 mg HS - Q 15 min checks for safety - Encourage participation in group and individual counseling - Obtain records from OP providers and coordinate aftercare - Contact Office of Student Affairs as needed - Assist the patient to explore healthy coping strategies - Safety planning 05/02 - Continue current meds - Continue to explore healthy coping strategies - Family meeting with girlfriend 05/03 and 05/03 - Continue current medications - Commended on group participation today - Family meeting with girlfriend scheduled for tomorrow - Solidify aftercare plans 05/04 and 05/05 - continue plan as above, trial of doxepin for sleep (2) Cannabis abuse: 05/01 - Recommend abstinence (3) Tobacco abuse disorder: 05/01 - Will provide Nicorette gum for nicotine withdrawal (4) Elevated TSH: 05/01 - Will repeat with a free T4 05/02 - TSH and free T4 today WNL. Inventory Assets Strengths: Willingness to engage in treatment, lives with girlfriend Needs: Healthy coping strategies Risk Factors Assessment Male: Yes : No Do You Have Access To A Gun?: No Health Problems: No Mental Health Diagnoses: Yes Substance Use Disorders: Yes Previous Attempt: No Family History of Suicide: No Previous Psychiatric Hospitalization: No Smoker: Yes Protective Factors Assessment : No Responsible for Young Children: No Employed: No Stable Relationships: Yes Supportive Family: Yes Good Rapport with Provider: Yes Interval History Identifying Information 22 yo male, admitted voluntarily with depression, mood swings, and suicidality in the setting of school and financial stress. Chief Complaint "I think I am doing okay today". Review of Systems Sleep Information Total Hours of Sleep: 6.75 Sleep Comments: pt. requested and received a prn hs dose of vistaril for sleep aid Meal Information Percent Meal Consumed - Breakfast: 80 Percent Meal Consumed - Lunch: 30 Percent Meal Consumed - Dinner: 30 Subjective Subjective Patient was seen & assessed and interval progress reviewed with Nursing The patient is engaged in the milieu . He had a meeting with his GF and Social WOrk discussed that he has a lock box filled with older med prescriptions, he denied saving meds for TI although TI has been a plan in the past, instaed he wants to keep older medications "in case I feel I need them," e.g. xanax He declined to dispose of meds, but agreed to have GF hold the box and the castro. Met with patient today, he notes his mood is "okay" last time he felt "okay" was last summer. He notes he has made a decision about school, "I don't really have a decision, I cannot attend school because my housing allowance is not enough to live on, and I cannot do school and work, SO I have to get a job to live and leave school." He states he has jelena working on this decision since Spring 2017, and now feels he has accepted it. He denies having other emotions about it such as anger, anxiety or sadness. He denies being able to put words to his teary eyes yesterday when discussing school with me. Discussed the difficult spot having his GF hold the med box castro creates for she and him. He noted " I am just not ready to get rid of it yet." but states he understands that to take meds he is no longer prescribed may be hazardous due to med-med interactions his current MD may not know, that he should divulge all uses of meds/supplements/substances to provider. Reocmmended he dispose of old meds. Recommended that if GF holds the box and castro that he talk over with therapist or psychiatrist at the time he wants them back to process this issue further. He states "I am willing to do that." He denies SI, intention or plan, but does not know his f/u appt with Dr Genao. He asks questions about his medications which are approriate such as lamictal titration. He felt doxepin helped him get sounder sleep and stay asleep. He denies grogginess, it was "not as fast to help me get to sleep as I would have liked." Discussed sleep hygiene, and passively active sleep activity to help with sleep onset and tolerating sleep latency time. Physical Exam Psychiatric Orientation: alert, oriented x 3 and cooperative Apperance: appropriately dressed and appropriately groomed Eye Contact: good eye contact and + fair eye contact Motor Behavior: steady gait and station and no abnormal motor movements Speech: normal rate/rhythm/volume of speech Affect: euthymic affect (some suspicion this is superficial as he denies having emotions about decision to leave school) states it is "okay" Thought Process: linear/logical thought process Thought Content: reality based without delusions Suicidal Thoughts: denies suicidal plan and denies suicidal intent; + reports suicidal thoughts (hopelessness is improving, but unable to clearly deny SI noting it is still on his mind in a vague way but denies overt intention or plan this moment) Homicidal Thoughts: denies homicidal thoughts Hallucinations: no auditory hallucinations and no visual hallucinations Cognition: recent memory grossly intact, remote memory grossly intact, attention grossly intact and language grossly intact Estimated Intelligence: average estimated intelligence and consistent with education level Insight: + fair insight Judgement: + fair judgement Vital Signs (Past 24 Hours) Last Vital Signs Temp 36.5 C 05/05/18 06:00 Pulse 66 05/05/18 07:00 Resp 16 05/05/18 06:00 BP 99/63 L 05/05/18 07:00 Pulse Ox 99 05/01/18 05:31 Results & Data Current Inpatient Medications Current Inpatient Medications: Current Inpatient Medications Acetaminophen (Tylenol) 650 mg PO Q4H PRN PRN Reason: Headache or Minor Fever Stop: 05/31/18 05:26 Al Hydrox/Mg Hydrox/Simethicone (Maalox) 30 ml PO Q4H PRN PRN Reason: GI Upset Stop: 05/31/18 05:26 Bismuth Subsalicylate (Kaopectate) 15 ml PO PRN PRN PRN Reason: Loose Stool Stop: 05/31/18 05:26 Clonazepam (Klonopin) 0.5 mg PO BID PRN PRN Reason: Anxiety Stop: 05/31/18 05:27 Last Admin: 05/02/18 12:06 Dose: 0.5 mg Doxepin HCl (Sinequan) 25 mg PO HS GOKUL Stop: 06/03/18 21:59 Last Admin: 05/04/18 21:39 Dose: 25 mg Hydroxyzine HCl (Vistaril) 25 mg PO Q4H PRN PRN Reason: Anxiety Stop: 05/31/18 05:26 Lamotrigine (Lamictal) 25 mg PO HS GOKUL Stop: 05/31/18 21:59 Last Admin: 05/04/18 21:39 Dose: 25 mg Magnesium Hydroxide (Milk Of Magnesia) 30 ml PO DAILY PRN PRN Reason: Heartburn Stop: 05/31/18 05:26 Nicotine Polacrilex (Nicorette 2mg) 1 piece MT PRN PRN PRN Reason: nicotine withdrawal Stop: 05/31/18 13:00 Sertraline HCl (Zoloft) 50 mg PO DAILY GOKUL Stop: 06/03/18 08:59 Last Admin: 05/05/18 08:47 Dose: 50 mg Sodium Chloride (Belfast Nasal) 1 - 2 sprays NA PRN PRN PRN Reason: Nasal Dryness/Congestion Stop: 05/31/18 05:26 Post Discharge Appointments Primary Care Physician Name Of Family Doctor: Ej Psychiatrist Name of Psychiatrist: [facility] - Dr Chadwick MD Psychiatrist's Date of Appointment with Psychiatrist: 05/09/18 Time of Appointment with Psychiatrist: 2:00 p.m. Psychiatric Appointment Comment: [address], [address], [place] [address] Therapist Name of Therapist: [facility] Therapist's Date of Therapist Appointment: 05/07/18 Time of Therapist Appointment: 2pm Therapy Appointment Comment: [address], [facility] [id number] Senior Quantity Surveyor Name of Senior Quantity Surveyor: [facility] - [facility] Phone Number for Senior Quantity Surveyor: [phone] Date of Appointment with Senior Quantity Surveyor: 05/06/18 Time of Appointment with Senior Quantity Surveyor: 1:30pm Case Management Appointment Comment: [address] [facility] [id number] Contact Information Discharge Discharge Address: [facility] [place] [address] CPT Code CPT Code 19067 + [id number] Spent >17min in combination of supportive psychotherapy and behavioral therapy processing his feelings about school and his options and his decision, and acceptance processing handling of his stash of medications and rationale for disposal and not using, but trying to compromise on safety while respecting autonomy behaivoral toward sleep hygiene, and discussion of passively active activity to do while waiting for sleep He participates actively and is receptive to this discussion
[2018-05-05] MEDS: DOXEPIN HCL 25 MG CAPSULE PO SCH (20:53)
[2018-05-05] MEDS: lamoTRIgine 25 MG TAB PO SCH (20:53)
[2018-05-06] MEDS: SERTRALINE HCL 50 MG TABLET PO SCH (09:00)
--- NOTE | 2018-05-06 13:48 | Discharge Summary ---
Date of Service May 06, 2018 History of Present Illness The patient is a 22-year-old man who is currently in treatment with Dr. Genao for what he says is depression anxiety and ADHD. He describes however that he has had problems for most of his life with anxiety, irritability and more recently extremes to his moods. He describes that he has been "up and down" for a very long time and he as well as his friends have wondered about bipolar disorder. He first began in treatment in May 2017 when he presented to the emergency room with similar complaints. He was discharged and referred to [facility] and eventually went on to his current outpatient providers. He indicates that he has been struggling for some time, that his friends have been encouraging him to get treatment that he has held off. He sees a counselor at [facility], Krista Wall, whom he went to see today who encouraged him to come to the emergency room for consideration of inpatient treatment. He describes that he was "really bad" from Sunday to Sunday, having not slept at all Sunday night and feeling that "everything about me was off". He admits to suicidal thinking that day as well as chronically. He says he has had suicidal thoughts since middle school but never truly acted on them. He reports that his sleep is "little to none" going to bed at 2 or 3 in the morning, getting up at 8. This pattern has been in place for years. His appetite has been "very little" and he believes his weight is down. Energy is variable saying it goes from high to low. When it is low he has no energy to even get out of bed. He endorses racing thoughts. He denies auditory or visual hallucinations but says that sometimes he has trouble determining what is real and what might be a dream. He endorses times when he intentionally restrict his food as a means of self punishment, in order to feel that empty feeling in his stomach but also his body conscious as well. He denies problems with anger but says that he does feel irritability that he has to "hold in". He endorses chronic anxiety, worries on a daily basis and this is been going on most of his life. He worries that everything has to be done "just right" but denies any symptoms that would be congruent with obsessive compulsive disorder. He has a history of cutting behaviors but he promised his girlfriend he would not do that anymore and so now he ties a string very tightly around his wrists as a means of self injury. In terms of manic symptoms, he says that he has times when he feels "energetic" and that he is having a "good time" but does not endorse symptoms that would meet criteria for a bipolar 1. Physical Exam Psychiatric Orientation: alert and cooperative Apperance: appropriately dressed and + disheveled Eye Contact: + fair eye contact Motor Behavior: steady gait and station and no abnormal motor movements Speech: normal rate/rhythm/volume of speech Affect: + blunted affect and + irritable affect Mood: + irritable mood Thought Process: goal directed thought process Thought Content: reality based without delusions Suicidal Thoughts: denies suicidal thoughts Homicidal Thoughts: denies homicidal thoughts Hallucinations: no auditory hallucinations and no visual hallucinations Cognition: recent memory grossly intact, remote memory grossly intact, attention grossly intact and language grossly intact Estimated Intelligence: consistent with education level Insight: + limited insight Judgement: + fair judgement Vital Signs (Past 24 Hours) Last Vital Signs Temp 36.7 C 05/06/18 06:00 Pulse 64 05/06/18 06:00 Resp 16 05/06/18 06:00 BP 95/60 L 05/06/18 06:00 Pulse Ox 99 05/01/18 05:31 Principal Diagnosis Bipolar disorder with mixed features Psychiatric Data The patient has been on our unit for 5 days. He was admitted voluntarily with severe irritability, mood swings, depression. He felt that his moods had been rapidly cycling and wondered about bipolar disorder. For complete admission information I refer you to the attached history and physical. During his stay, Zoloft was decreased from 100 mg to 50 mg daily in the event it was destabilizing an underlying bipolar disorder. He was started on Lamictal 25 mg daily which he tolerated without side effect and is due to increased to 50 mg daily on May 08. During his stay he did improve to some degree although persisted with some irritability, blaming being in the hospital for his restlessness. He had some suicidal thinking through most of his stay which he described as chronic and not something he had plan or intention to act on. He had a meeting with his girlfriend during the course of his stay, she was supportive. They live together. He will return to the outpatient care of Dr. Genao and Krista Wall. He participated in group and individual counseling during his stay. Risk factors were mitigated through the use of this counseling , medications, meeting with the psychiatric providers daily, safety planning, family meeting, and exploring healthy coping strategies. Day of Discharge Assessment Today the patient says that he remains somewhat irritable because he is still in the hospital. He is requesting discharge thinking that he needs to get home and learn to use the skills that he learned here in groups. He denies any acute suicidal thinking. He denies any evidence of psychosis. Today he is casually dressed but somewhat disheveled with his hair going in many directions , not having shaved. Gait and station are within normal limits. Eye contact is good. Affect is irritable in nature. Speech is of normal rate volume and tone. Thoughts are organized, goal-directed, and without evidence of thought disorder. Recent and remote memory are intact per conversation. Intelligence is estimated to be average. Insight and judgment are improved over admission. Transition of Care Transition Of Care Record: was reviewed with the patient Advance Directives Advance Directives Information Provided: Yes Advance Directives: No Mental Health Advance Directive: No Advance Directives on File: No Living Will: No Power of Costume Designer: No Advance Directives Reason:: Declines as Mental Health Visit. Risk Factors Assessment Male: Yes : No Do You Have Access To A Gun?: No Health Problems: No Mental Health Diagnoses: Yes Substance Use Disorders: Yes Previous Attempt: No Family History of Suicide: No Previous Psychiatric Hospitalization: No Smoker: Yes Protective Factors Assessment : No Responsible for Young Children: No Employed: No Stable Relationships: Yes Supportive Family: Yes Good Rapport with Provider: Yes Discharge Data Lab Results 04/30/18 04/30/18 04/30/18 21:43 21:43 21:43 WBC RBC Hgb Hct MCV MCH MCHC RDW Std Deviation RDW Coeff of [place] Plt Count MPV Immature Gran % (Auto) Neut % (Auto) Lymph % (Auto) [place] % (Auto) Eos % (Auto) Baso % (Auto) Immature Gran # (Auto) Neut # (Auto) Lymph # (Auto) [place] # (Auto) Eos # (Auto) Baso # (Auto) Sodium Potassium Chloride Carbon Dioxide Anion Gap BUN Creatinine Est Cr Clr Drug Dosing Est GFR ( Amer) Est GFR (Non-Af Amer) BUN/Creatinine Ratio Glucose Calcium Total Bilirubin AST ALT Alkaline Phosphatase Total Protein Albumin Globulin Albumin/Globulin Ratio TSH Free T4 Urine Color Yellow Urine Appearance Clear Urine pH 7.0 Ur Specific [place] 1.025 Urine Protein Negative Urine Glucose (UA) Negative Urine Ketones Trace H Urine Blood Negative Urine Nitrite Negative Urine Bilirubin Negative Urine Urobilinogen Negative Ur Leukocyte Esterase Negative Salicylates Urine Opiates Screen Neg Ur Methadone, Qual Neg Acetaminophen Urine Barbiturates Neg Ur Phencyclidine (PCP) Neg U Amphetamines Confirm 9770 A U Amphetamin/Meth Scrn Pos H U Methamphetamin Confrm NEGATIVE MDMA (Ecstasy) Screen Neg U Benzodiazepines Scrn Neg Ur Cocaine Metabolite Neg U Marijuana (THC) Screen Pos H U Marijuana THC Carboxy 105 A Ethyl Alcohol mg/dL 04/30/18 04/30/18 04/30/18 22:05 22:05 22:05 WBC 6.14 RBC 4.33 L Hgb 13.8 L Hct 40.4 L MCV 93.3 MCH 31.9 MCHC 34.2 RDW Std Deviation 41.2 RDW Coeff of [place] 12.2 Plt Count 231 MPV 11.1 H Immature Gran % (Auto) 0.2 Neut % (Auto) 43.5 Lymph % (Auto) 48.9 [place] % (Auto) 5.9 Eos % (Auto) 0.7 Baso % (Auto) 0.8 Immature Gran # (Auto) 0.01 Neut # (Auto) 2.68 Lymph # (Auto) 3.00 [place] # (Auto) 0.36 Eos # (Auto) 0.04 Baso # (Auto) 0.05 Sodium 139 Potassium 3.6 Chloride 105 Carbon Dioxide 30 Anion Gap 5.0 BUN 14 Creatinine 1.06 Est Cr Clr Drug Dosing 99.3 Est GFR ( Amer) 114.1 Est GFR (Non-Af Amer) 98.4 BUN/Creatinine Ratio 12.8 Glucose 82 Calcium 8.7 Total Bilirubin 0.5 AST 28 ALT 22 Alkaline Phosphatase 57 Total Protein 7.1 Albumin 4.1 Globulin 3.0 Albumin/Globulin Ratio 1.3 TSH 5.680 H Free T4 Urine Color Urine Appearance Urine pH Ur Specific [place] Urine Protein Urine Glucose (UA) Urine Ketones Urine Blood Urine Nitrite Urine Bilirubin Urine Urobilinogen Ur Leukocyte Esterase Salicylates < 1.7 L Urine Opiates Screen Ur Methadone, Qual Acetaminophen < 2 L Urine Barbiturates Ur Phencyclidine (PCP) U Amphetamines Confirm U Amphetamin/Meth Scrn U Methamphetamin Confrm MDMA (Ecstasy) Screen U Benzodiazepines Scrn Ur Cocaine Metabolite U Marijuana (THC) Screen U Marijuana THC Carboxy Ethyl Alcohol mg/dL 04/30/18 05/02/18 22:05 07:25 WBC RBC Hgb Hct MCV MCH MCHC RDW Std Deviation RDW Coeff of [place] Plt Count MPV Immature Gran % (Auto) Neut % (Auto) Lymph % (Auto) [place] % (Auto) Eos % (Auto) Baso % (Auto) Immature Gran # (Auto) Neut # (Auto) Lymph # (Auto) [place] # (Auto) Eos # (Auto) Baso # (Auto) Sodium Potassium Chloride Carbon Dioxide Anion Gap BUN Creatinine Est Cr Clr Drug Dosing Est GFR ( Amer) Est GFR (Non-Af Amer) BUN/Creatinine Ratio Glucose Calcium Total Bilirubin AST ALT Alkaline Phosphatase Total Protein Albumin Globulin Albumin/Globulin Ratio TSH 2.100 Free T4 0.95 Urine Color Urine Appearance Urine pH Ur Specific [place] Urine Protein Urine Glucose (UA) Urine Ketones Urine Blood Urine Nitrite Urine Bilirubin Urine Urobilinogen Ur Leukocyte Esterase Salicylates Urine Opiates Screen Ur Methadone, Qual Acetaminophen Urine Barbiturates Ur Phencyclidine (PCP) U Amphetamines Confirm U Amphetamin/Meth Scrn U Methamphetamin Confrm MDMA (Ecstasy) Screen U Benzodiazepines Scrn Ur Cocaine Metabolite U Marijuana (THC) Screen U Marijuana THC Carboxy Ethyl Alcohol mg/dL < 3.0 Hospital Course (1) Bipolar II disorder with rapid cyclin/6 Differential includes major depressive disorder, GHANSHYAM - Reduce Zoloft to 50 mg daily - Hold Adderall - Start Lamictal 25 mg HS - Q 15 min checks for safety - Encourage participation in group and individual counseling - Obtain records from OP providers and coordinate aftercare - Contact Office of Student Affairs as needed - Assist the patient to explore healthy coping strategies - Safety planning 05/02 - Continue current meds - Continue to explore healthy coping strategies - Family meeting with girlfriend 05/03 and 05/03 - Continue current medications - Commended on group participation today - Family meeting with girlfriend scheduled for tomorrow - Solidify aftercare plans 05/04 and 05/05 - continue plan as above, trial of doxepin for sleep (2) Cannabis abuse: 05/01 - Recommend abstinence (3) Tobacco abuse disorder: 05/01 - Will provide Nicorette gum for nicotine withdrawal (4) Elevated TSH: 05/01 - Will repeat with a free T4 05/02 - TSH and free T4 today WNL. Post Discharge Appointments Primary Care Physician Name Of Family Doctor: Denies Psychiatrist Name of Psychiatrist: [facility] - Dr Chadwick MD Psychiatrist's Date of Appointment with Psychiatrist: 05/09/18 Time of Appointment with Psychiatrist: 2:00 p.m. Psychiatric Appointment Comment: [address], [address], [place] [address] Therapist Name of Therapist: Kia Wall [facility] Therapist's Date of Therapist Appointment: 05/07/18 Time of Therapist Appointment: 2pm Therapy Appointment Comment: [address], [facility] [address] Car Blocker Name of Car Blocker: [facility] - [facility] Phone Number for Car Blocker: [phone] Date of Appointment with Car Blocker: 05/07/18 Time of Appointment with Car Blocker: 8:30 a.m. Case Management Appointment Comment: [address] [place] [address] Contact Information Discharge Discharge [address]: [address] [place] [address] [place] [address] Discharge Plan Discharge Items Patient Disposition: Home - Self-Care Reason For Visit: MAJOR DEPRESSION Discharge Diagnosis: Bipolar disorder Condition: Fair Discharge Goals: Decrease discomfort, Improve disease control and Improve function Activity: Resume your previous activity Non-emergency contact: Primary Care Provider, Psychiatrist and Therapist Call non-emergency contact if: you have any medication questions and your symptoms worsen Diet: Regular Addtl Provider Instructions: SPECIAL CARE INSTRUCTIONS: 1. Follow through with your scheduled aftercare appointments. If unable to keep an appointment, please call to reschedule. 2. Take your medication only as prescribed. Medication should not be changed or stopped without the approval of your doctor. In the event of worsening symptoms or concerns about side effects, contact your doctor immediately. 3. Utilize new healthy coping skills, anger management skills, and stress management skills learned during your hospitalization. Journal feelings and process them with a support person. Identify stressors or situations that may result in relapse, deterioration or inappropriate behaviors and develop a plan to deal with those issues. 4. If your coping skills are ineffective and you are in crisis, contact your outpatient providers for direction. If unable to reach your providers, please call the CAN HELP LINE AT or go to the closest Emergency Room. 5. Avoid alcohol and un-prescribed drugs. 6. You have been provided with the Mental Health Advance Directives Pamphlet for your review. AFTERCARE APPOINTMENTS: * Please call your insurance company prior to your scheduled appointment to confirm your aftercare providers are covered. Take your insurance information to your appointments. WHO TO CALL AND WHEN: Medical Emergencies: For questions or emergencies related to your hospital stay, please contact the Inpatient Behavioral Health Unit at [phone]. A furnace tapper is on-call 16/10 for the Behavioral Health Unit for emergencies At any time you feel your situation is an emergency, you may also call 911 immediately. Your Doctors Instructions noted above were prepared by provider ARLENE Fox. Prescriptions: New doxepin 25 mg Capsule 25 mg PO HS Qty: 7 RF: 0 lamotrigine 25 mg Tablet 25 mg PO HS Qty: 60 RF: 0 Continue clonazepam 0.5 mg tablet 0.5 mg PO BID PRN (Reason: Anxiety) RF: 0 Discontinued zolpidem [Ambien] 10 mg Tablet 10 mg PO HS PRN (Reason: Insomnia) RF: 0 dextroamphetamine-amphetamine [Adderall XR] 20 mg Capsule,Extended Release 24hr 20 mg PO DAILY RF: 0 dextroamphetamine-amphetamine [Adderall] 20 mg Tablet 40 mg PO DAILY RF: 0 No Action prazosin 1 mg capsule 1 mg PO DAILY RF: 0 Stand-Alone Forms: [facility] Discharge Orders: Discharge Order (Routine); Ordered 05/06/18 Ordered By: Marge Noel Admission Data Admit Date/Time: 05/01/18 04:46 Attending Provider: Aye Churchill Admit Provider: Sachi Milton Primary Care Provider: [place] Service: Psychiatry Other Interventions: PSY Interdisciplinary Discharge Planning Last Done: 05/06/18 10:49 Pending Studies at Discharge: No
== END 2018-05-06 15:47 | disposition home or self-care (01) | DRG 885 ==
LOC: ED 21:32 → 3S 05-01 04:46
DX: R45.851 Suicidal ideations; F17.210 Nicotine dependence, cigarettes, uncomplicated; F12.10 Cannabis abuse, uncomplicated; F90.9 Attention-deficit hyperactivity disorder, unspecified type; R94.6 Abnormal results of thyroid function studies; F31.81 Bipolar II disorder

== ENCOUNTER 2018-07-29 17:35 | Inpatient (IN) ==
[2018-07-29 18:26] LABS: Appearance Urine Clear (Clear); Bilirubin Urine Negative (Negative); Blood Urine Negative (Negative); Color Urine Yellow; Glucose Urine UA Negative (Negative); Ketones Urine Negative (Negative); Leukocyte Esterase Urine Negative (Negative); Nitrite Urine Negative (Negative); Protein Urine Negative (Negative); Specific Gravity Urine 1.018 (1.000-1.030); Urobilinogen Urine Negative (Negative); pH Urine 7.5 (4.5-7.5)
[2018-07-29 18:58] LABS: Amphetamines+Metham, Urine Neg (Neg); Barbiturates, Urine Neg (Neg); Benzodiazepine, Urine Neg (Neg); Cocaine, Urine Neg (Neg); MDMA (Ecstacy), Urine Neg (Neg); Methadone, Urine Neg (Neg); Opiate, Urine Neg (Neg); Phencyclidine, Urine Neg (Neg)
[2018-07-29 19:20] LABS: Basophils # (auto) 0.04 K/uL (0-0.2); Basophils % (auto) 0.7 %; Eosinophils # (auto) 0.02 K/uL (0-0.5); Eosinophils % (auto) 0.3 %; Hematocrit (blood only) 42.5 % (42-52); Hemoglobin 14.5 g/dL (14.0-18.0); Immature Granulocytes # (auto) 0.01 K/uL (0.00-0.02); Immature Granulocytes % (auto) 0.2 %; Lymphocytes # (auto) 1.83 K/uL (1.2-3.4); Lymphocytes % (auto) 30.8 %; Mean Corpuscular Hgb Conc 34.1 g/dL (32-36); Mean Platelet Volume 10.3 fL (7.4-10.4); Monocytes # (auto) 0.31 K/uL (0.11-0.59); Monocytes % (auto) 5.2 %; Neutrophils # (auto) 3.74 K/uL (1.4-6.5); Neutrophils % (auto) 62.8 %; Platelet Count 250 K/uL (130-400); RDW Coefficient of Variation 11.9 % (11.5-14.5); Red Blood Count 4.57 M/uL (4.7-6.1); White Blood Count 5.95 K/uL (4.8-10.8)
[2018-07-29 19:40] LABS: Albumin Level 4.2 gm/dl (3.4-5.0); Calcium 8.9 mg/dl (8.5-10.1); Creatinine Clr Calc Pharmacy 98.1 ml/min; Est GFR (African American) 109.1; Est GFR (Non-African American) 94.1; Potassium 3.7 mmol/L (3.5-5.1)
[2018-07-29 19:46] LABS: Acetaminophen < 2 ug/ml (10-30); Salicylate < 1.7 mg/dl (2.8-20)
[2018-07-29 19:50] LABS: Albumin Globulin Ratio 1.4 (0.9-2); Bilirubin,Total 0.5 mg/dl (0.2-1); Globulin 3.1 gm/dl (2.5-4.0); Total Protein 7.3 gm/dl (6.4-8.2)
--- NOTE | 2018-07-29 21:46 | Emergency Department Note ---
Entered by Yonis José acting as a scribe for History of Present Illness General Chief Complaint: Mental Health Evaluation Stated Complaint: PSYCH REFERRED TO COME IN Time Seen by Provider: 07/29/18 17:55 Source: patient History of Present Illness Provider complaint: feels depressed Onset (ago): unknown Duration: changing over time History of same: Yes Context: + significant life stressor Associated psychiatric symptoms: + depression and + suicidal ideation Associated symptoms: + denies other symptoms Treatments prior to arrival: + none If self harm: + has plan Details of plan: Overdose on medication The patient is a 22 year old male who presents to the Emergency Room with complaints of depression that has been changing in severity over the past couple of days. The patient states he is not feeling well emotionally and has had a hard time thinking and putting words together. Yesterday he notes the symptoms got worse and last night he planned on overdosing on his medication. He saw his psychiatrist today and she sent him to the ED to make sure he is safe. The patient has not missed any doses of his psych medications. The patient mentioned that he does not really want to stay as an inpatient but he has before so if it is necessary he will. He also said he did not want his parents contacted about the situation. Home Medications Home Medications Medication Instructions Recorded Confirmed Type clonidine HCl 0.1 mg PO ONCE HS 07/29/18 07/29/18 History lamotrigine 75 mg PO BID 07/29/18 07/29/18 History quetiapine 50 mg PO HS 07/29/18 07/29/18 History sertraline 50 mg PO DAILY 07/29/18 07/29/18 History Allergies Allergy/AdvReac Type Severity Reaction Status Date / Time No Known Allergies Allergy Verified 07/29/18 21:38 Past Med/Surg History Medical History No significant past surgical history No chronic diseases present Family History Other No pertinent family history in first degree relatives Social History Preferred Language: [place] Communication Ability: Effective [employer] Required: No Beliefs That Will Affect Care: None Feels Safe at Home: Yes Smoking Status: Current every day smoker Tobacco Type: cigarettes and e- cigarettes Review of Systems See HPI for pertinent positives & negatives. and A total of 10 systems reviewed and were otherwise negative Physical Exam Vital Signs Vital Signs - 24 hr 07/30/18 06:30 07/30/18 06:31 Temperature 36.7 C Temperature Source Oral Pulse Rate [Left Brachial] 56 L 72 Pulse Rhythm [Left Brachial] Regular Regular Pulse Strength [Left Brachial] Normal Normal Respiratory Rate 16 Respiratory Effort / Characteristics Non-Labored Respiratory Depth Normal Respiratory Pattern Regular Blood Pressure [Left Arm] 102/63 105/67 Blood Pressure Mean [Left Arm] 76 79 Blood Pressure Position [Left Arm] Lying Sitting GENERAL: Awake, alert, well-appearing, in no distress HENT: Normocephalic, atraumatic. Oropharynx unremarkable. EYES: Normal conjunctiva. Sclera non-icteric. NECK: Supple. No nuchal rigidity. FROM. No masses. RESPIRATORY: Clear to auscultation. No wheezes. No rales. Normal respiratory effort. CARDIAC: Normal rate. Normal rhythm. No murmurs. No rubs. Extremities warm and well perfused. Pulses equal. No JVD. GI: Soft, non-distended. No tenderness to palpation. No rebound or guarding. No masses. RECTAL: Deferred. MUSCULOSKELETAL: Atraumatic. Chest examination reveals no tenderness. The back is symmetrical on inspection without obvious abnormality. There is no CVA tenderness to palpation. No joint edema. LOWER EXTREMITIES: Calves are equal size bilaterally and non-tender. No edema. No discoloration. NEURO: Normal sensorium. No sensory or motor deficits noted. Course 1802: The patient was evaluated in room A06, and a complete history and physical examination were performed. 2229: The patient has been medically cleared and was accepted by [facility] for inpatient treatment. Administered Medications Clonidine HCl (Catapres) 0.1 mg PO QPM [facility] Stop: 08/28/18 22:59 Last Admin: 07/30/18 21:22 Dose: 0.1 mg Documented by: [id number] Admin: 07/29/18 23:39 Dose: Not Given Documented by: [id number] Hydroxyzine HCl (Vistaril) 50 mg PO HSZ PRN PRN Reason: Insomnia Stop: 08/28/18 22:07 Last Admin: 07/30/18 21:27 Dose: 50 mg Documented by: [id number] Lamotrigine (Lamictal) 100 mg PO BID [facility] Stop: 08/29/18 20:59 Last Admin: 07/30/18 21:22 Dose: 100 mg Documented by: [id number] Miscellaneous (Remove Nicoderm Patch) 1 ea N/A [facility] Stop: 08/29/18 20:59 Last Admin: 07/30/18 22:16 Dose: Not Given Documented by: [id number] Admin: 07/30/18 21:29 Dose: Not Given Documented by: [id number] Nicotine ([facility]oderm Cq) [facility] [place] Stop: 08/29/18 11:59 Last Admin: 07/30/18 11:44 Dose: Not Given Documented by: [id number] Quetiapine Fumarate (Seroquel) 100 mg PO [facility] Stop: 08/29/18 21:59 Last Admin: 07/30/18 21:22 Dose: 100 mg Documented by: [id number] Sertraline HCl (Zoloft) [facility] [place] Stop: 08/29/18 08:59 Last Admin: 07/30/18 08:51 Dose: 50 mg Documented by: [id number] Discontinued Medications Lamotrigine (Lamictal) 75 mg PO BID [facility] Stop: 08/28/18 23:00 Last Admin: 07/30/18 08:50 Dose: 75 mg Documented by: [id number] Admin: 07/29/18 23:33 Dose: 75 mg Documented by: [id number] Nicotine (Nicoderm Cq) 14 mg TD QAM [facility] Stop: 08/29/18 10:14 Last Admin: 07/30/18 11:11 Dose: 14 mg Documented by: [id number] Quetiapine Fumarate (Seroquel) 50 mg PO QPM [facility] Stop: 08/28/18 23:01 Last Admin: 07/29/18 23:34 Dose: 50 mg Documented by: [id number] Medical Decision Making Differential Diagnosis Differential diagnoses considered include mood disorder, infection, hypoglycemia, electrolyte abnormalities, cardiac sources, intracerebral event, toxicologic, neurologic, as well as others. Medical Records Attestation: I reviewed the patient's medical records. Home Medications Current Medication List: was personally reviewed by me Laboratory Data Attestation: I reviewed the patient's lab results. Result diagrams: 07/29/18 18:53 07/29/18 18:53 Lab Results 07/29/18 07/29/18 07/29/18 Range/Units 17:51 17:51 18:53 WBC 5.95 (4.8-10.8) K/uL RBC 4.57 L (4.7-6.1) M/uL Hgb 14.5 (14.0-18.0) g/dL Hct 42.5 (42-52) % MCV 93.0 (80-100) fL MCH 31.7 (25-34) pg MCHC 34.1 (32-36) g/dL RDW Std Deviation 40.0 (36.4-46.3) fL RDW Coeff of [place] 11.9 (11.5-14.5) % Plt Count 250 (130-400) K/uL MPV 10.3 (7.4-10.4) fL Immature Gran % (Auto) 0.2 % Neut % (Auto) 62.8 % Lymph % (Auto) 30.8 % [place] % (Auto) 5.2 % Eos % (Auto) 0.3 % Baso % (Auto) 0.7 % Immature Gran # (Auto) 0.01 (0.00-0.02) K/uL Neut # (Auto) 3.74 (1.4-6.5) K/uL Lymph # (Auto) 1.83 (1.2-3.4) K/uL [place] # (Auto) 0.31 (0.11-0.59) K/uL Eos # (Auto) 0.02 (0-0.5) K/uL Baso # (Auto) 0.04 (0-0.2) K/uL Sodium (136-145) mmol/L Potassium (3.5-5.1) mmol/L Chloride (98-107) mmol/L Carbon Dioxide (21-32) mmol/L Anion Gap (3-11) BUN (7-18) mg/dl Creatinine (0.6-1.4) mg/dl Est Cr Clr Drug Dosing ml/min Est GFR ( Amer) Est GFR (Non-Af Amer) BUN/Creatinine Ratio (10-20) Glucose (70-99) mg/dl Calcium (8.5-10.1) mg/dl Total Bilirubin (0.2-1) mg/dl AST (15-37) U/L ALT (12-78) U/L Alkaline Phosphatase (45-117) U/L Total Protein (6.4-8.2) gm/dl Albumin (3.4-5.0) gm/dl Globulin (2.5-4.0) gm/dl Albumin/Globulin Ratio (0.9-2) TSH (0.300-4.500) uIu/ml Urine Color Yellow Urine Appearance Clear (Clear) Urine pH 7.5 (4.5-7.5) Ur Specific Helix 1.018 (1.000-1.030) Urine Protein Negative (Negative) Urine Glucose (UA) Negative (Negative) Urine Ketones Negative (Negative) Urine Blood Negative (Negative) Urine Nitrite Negative (Negative) Urine Bilirubin Negative (Negative) Urine Urobilinogen Negative (Negative) Ur Leukocyte Esterase Negative (Negative) Salicylates (2.8-20) mg/dl Urine Opiates Screen Neg (Neg) Ur Methadone, Qual Neg (Neg) Acetaminophen (10-30) ug/ml Urine Barbiturates Neg (Neg) Ur Phencyclidine (PCP) Neg (Neg) U Amphetamin/Meth Scrn Neg (Neg) MDMA (Ecstasy) Screen Neg (Neg) U Benzodiazepines Scrn Neg (Neg) Ur Cocaine Metabolite Neg (Neg) U Marijuana (THC) Screen Neg (Neg) Ethyl Alcohol mg/dL (0-3) mg/dl 07/29/18 07/29/18 07/29/18 Range/Units 18:53 18:53 18:53 WBC (4.8-10.8) K/uL RBC (4.7-6.1) M/uL Hgb (14.0-18.0) g/dL Hct (42-52) % MCV (80-100) fL MCH (25-34) pg MCHC (32-36) g/dL RDW Std Deviation (36.4-46.3) fL RDW Coeff of [place] (11.5-14.5) % Plt Count (130-400) K/uL MPV (7.4-10.4) fL Immature Gran % (Auto) % Neut % (Auto) % Lymph % (Auto) % [place] % (Auto) % Eos % (Auto) % Baso % (Auto) % Immature Gran # (Auto) (0.00-0.02) K/uL Neut # (Auto) (1.4-6.5) K/uL Lymph # (Auto) (1.2-3.4) K/uL [place] # (Auto) (0.11-0.59) K/uL Eos # (Auto) (0-0.5) K/uL Baso # (Auto) (0-0.2) K/uL Sodium 140 (136-145) mmol/L Potassium 3.7 (3.5-5.1) mmol/L Chloride 106 (98-107) mmol/L Carbon Dioxide 28 (21-32) mmol/L Anion Gap 6.0 (3-11) BUN 10 (7-18) mg/dl Creatinine 1.10 (0.6-1.4) mg/dl Est Cr Clr Drug Dosing 98.1 ml/min Est GFR ( Amer) 109.1 Est GFR (Non-Af Amer) 94.1 BUN/Creatinine Ratio 9.0 L (10-20) Glucose 89 (70-99) mg/dl Calcium 8.9 (8.5-10.1) mg/dl Total Bilirubin 0.5 (0.2-1) mg/dl AST 33 (15-37) U/L ALT 31 (12-78) U/L Alkaline Phosphatase 64 (45-117) U/L Total Protein 7.3 (6.4-8.2) gm/dl Albumin 4.2 (3.4-5.0) gm/dl Globulin 3.1 (2.5-4.0) gm/dl Albumin/Globulin Ratio 1.4 (0.9-2) TSH 1.660 (0.300-4.500) uIu/ml Urine Color Urine Appearance (Clear) Urine pH (4.5-7.5) Ur Specific Helix (1.000-1.030) Urine Protein (Negative) Urine Glucose (UA) (Negative) Urine Ketones (Negative) Urine Blood (Negative) Urine Nitrite (Negative) Urine Bilirubin (Negative) Urine Urobilinogen (Negative) Ur Leukocyte Esterase (Negative) Salicylates < 1.7 L (2.8-20) mg/dl Urine Opiates Screen (Neg) Ur Methadone, Qual (Neg) Acetaminophen < 2 L (10-30) ug/ml Urine Barbiturates (Neg) Ur Phencyclidine (PCP) (Neg) U Amphetamin/Meth Scrn (Neg) MDMA (Ecstasy) Screen (Neg) U Benzodiazepines Scrn (Neg) Ur Cocaine Metabolite (Neg) U Marijuana (THC) Screen (Neg) Ethyl Alcohol mg/dL < 3.0 (0-3) mg/dl Blood Pressure Blood Pressure Findings: Normal blood pressure MDM Narrative This is a 22-year-old male who presents emergency department complaining of mood disorder. The patient was medically cleared by me. He was then evaluated by case management who referred the patient to [facility]. Patient was subsequently admitted to [facility]. Impression & Plan Mood disorder Discharge Plan Visit Data *Final* Discharge Date/Time: 07/29/18 22:35 Chief Complaint: Mental Health Evaluation Stated Complaint: PSYCH REFERRED TO COME IN ED Provider: Kai Martell Discharge Problem: Mood disorder Patient Disposition: Admitted As Inpatient Discharge Instructions Interventions: ED Discharge Assessment Last Done: 07/29/18 22:35 The scribe's documentation has been prepared under my direction and personally reviewed by me in its entirety. I confirm that the note above accurately reflects all work, treatment, procedures, and medical decision making performed by me.
[2018-07-29] MEDS ORDERED: MAGNESIUM HYDROXIDE SUSP 30 ML UDC PO PRN (22:08)
[2018-07-29] MEDS ORDERED: SODIUM CHLORIDE 0.65% NA SOLN 45 ML (OCEAN) PRN (22:08)
[2018-07-29] MEDS ORDERED: ALUMINUM/MAGNESIUM SUSP 30 ML UDC PO PRN (22:08)
[2018-07-29] MEDS ORDERED: BISMUTH SUBSALICYLATE PER ML OMNICELL CHARGE PO PRN (22:08)
[2018-07-29] MEDS ORDERED: ACETAMINOPHEN 325 MG TAB PO PRN (22:08)
[2018-07-29] MEDS ORDERED: QUETIAPINE FUMARATE 25 MG TABLET PO SCH (23:02)
[2018-07-29] MEDS: lamoTRIgine 25 MG TAB PO SCH (23:33)
[2018-07-29] MEDS: cloNIDine HCl 0.1 MG TAB PO SCH (23:39)
[2018-07-30] MEDS: lamoTRIgine 25 MG TAB PO SCH (08:50)
[2018-07-30] MEDS: SERTRALINE HCL 50 MG TABLET PO SCH (08:51)
[2018-07-30] MEDS ORDERED: NICOTINE POLACRILEX 2 MG GUM MT PRN (10:05)
[2018-07-30] MEDS ORDERED: NICOTINE 21 MG/24 HR TDSY TD SCH (10:15)
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
[2018-07-30] MEDS: NICOTINE 14 MG/24 HR PATCH TD SCH (11:44)
[2018-07-30] MEDS: lamoTRIgine 100 MG TAB PO SCH (21:22)
[2018-07-30] MEDS: cloNIDine HCl 0.1 MG TAB PO SCH (21:22)
[2018-07-30] MEDS: QUETIAPINE FUMARATE 100 MG TABLET PO SCH (21:22)
[2018-07-31 08:04] LABS: Glucose Fasting 77 mg/dl (70-99)
[2018-07-31 08:11] LABS: Chol HDL Ratio 3; Cholesterol 147 mg/dl (0-200); HDL Cholesterol 49 mg/dl; LDL Cholesterol Calculated 85 mg/dl; Triglycerides 63 mg/dl (0-150); VLDL Cholesterol 13 mg/dl
[2018-07-31] MEDS: SERTRALINE HCL 50 MG TABLET PO SCH (09:35)
[2018-07-31] MEDS: lamoTRIgine 100 MG TAB PO SCH ×2 (09:36→21:26)
--- NOTE | 2018-07-31 11:08 | Psychiatric Progress Note ---
Date of Service July 31, 2018 Impression / Recommendations Impression Pt reports worsening of mood since yesterday, stating vivid and distressing dreams put him "in a bad mood". He does admit that his mood had previously been improving since the weekend. Call placed this morning to discuss status of GI Bill, as patient worried he will have to pay back tuition - did not find phone conversation helpful. Pt denies thoughts of SI today, but continues to verbalize an "insurance plan" which includes keeping a supply of medications at home for use should he decide to end his life. Pt is flat today, speaking bluntly about his suicidality - "It just gets old, and it is my life, I should be able to be in control" - referring to when it ends. Pt states his outpatient supports are unavailable for a family meeting and he is not interested in bothering them, further increasing his risk for self-harm. He is attending groups, but states his desire would be to isolate to his room. Will flat affect, worsening mood, and blunt verbalization of suicide plan without being agreeable to proper safety planning - patient remains at high risk of harm to self if discharged prematurely. (1) Suicide ideation: 07/30 - Patient w/ acute on chronic SI, admitted after reporting plan to overdose on all his medications. He reports having a large supply of medications at home, including Ambien. Recommend girlfriend bring in all old, discontinued meds for safe disposal due to overdose/suicide risk. Patient is somewhat ambivalent about this and about living in general. States he is struggling with the meaning of life, why people have to live and suffer if is the end for everyone. Would like to explore further here. 07/31 - Denies SI so far today, but admits thoughts generally develop when mood is lower, which he is reporting - Continue to address outpatient safety concerns, including supply of medication at home being used as "insurance plan" to end life (2) Bipolar II disorder with rapid cyclin/7 - Diagnosed during 05/2018 hospitalization. Mood still unstable, will increase lamotrigine to 100mg bid, and quetiapine to 100mg HS to target mood instability and sleep. -Discussed risks, benefits and side effects of these medications, including metabolic syndrome and need for lab monitoring. He denies that he'd had fasting labs done, so will order FLP and FG for tomorrow for monitoring on an atypical. - Continue sertraline 50mg daily. He asked about increasing it, but advised against it due to risk of destabilization, although could consider titration in the future once mood is more stable (if dep sx or anxiety still problematic). 07/31 - Mood today is worsened from yesterday, states sleep was adequate last evening with the exception of distressing dreams - Continue current medication regimen (3) Tobacco abuse disorder: 07/30 - Offer patch, gun and smoking cessation education. F/u with OP provider at [facility]. Inventory Assets Strengths: Stable housing, supportive girlfriend Needs: improved coping skills Risk Factors Assessment Male: Yes : No Do You Have Access To A Gun?: No Health Problems: No Mental Health Diagnoses: Yes Substance Use Disorders: Yes Previous Attempt: No Family History of Suicide: Yes Previous Psychiatric Hospitalization: Yes Hopelessness: Yes Smoker: Yes Protective Factors Assessment Yarsani Beliefs: No : No Responsible for Young Children: No Employed: No Stable Relationships: No Supportive Family: No Good Rapport with Provider: Yes Interval History Identifying Information PATRICIA KIMBROUGH is a 22-year-old M who currently lives in [place], has a history of bipolar 2, cannabis abuse, and hospitalization 3 months ago for suicidal ideation, and was admitted on 07/29/18 22:08 on a 201 voluntary commitment for suicidality. Chief Complaint "Not really good today, in general". Review of Systems Notes Constitutional: reports low energy today Cardiovascular: denied Respiratory: denied Gastrointestinal: denied Neurological: denied Psychiatric: denies symptoms other than stated above Total of at least 10 systems reviewed, pertinent positives as above and in HPI. Sleep Information Total Hours of Sleep: 6.5 Sleep Comments: pt NPO during the night. pt on q-15 minute checks Meal Information Percent Meal Consumed - Breakfast: 100 Percent Meal Consumed - Lunch: 100 Percent Meal Consumed - Dinner: 100 Subjective Subjective Patient was seen & assessed and interval progress reviewed with Treatment Team. Staff report the patient appears to be minimizing stressors. He has had little involvement from outpatient supports and it was reported he is not willing to have someone bring in his extra medications to be destroyed. Pt was seen today to assess progress since admission. He states his mood is "worse today", reporting distressing dreams last evening in which his ex-girlfriend and a previous friend were present. Mood changes related to considering these relationships have been persistent all day. Pt denies SI so far this morning, but admits - "it's not really from events causing it, but rather the mood." He admits to this provider that he is not interested in his girlfriend bringing in his supply of discontinued home medications as, "they're not a temptation, but they are an insurance policy." He makes several concerning statements today: "it's all getting old" and "it's my life, I should be in control of it" - referring to when it ends. Pt was encouraged to continue in treatment, and was encouraged in his participation in groups - as he states he is in an isolative mood today. He denies other needs or concerns presently. Physical Exam Psychiatric Orientation: alert, oriented x 3 and cooperative Apperance: appropriately dressed, appropriately groomed and appeared stated age Eye Contact: good eye contact Motor Behavior: steady gait and station and no abnormal motor movements appears somewhat slowed today Speech: normal rate/rhythm/volume of speech (monotone) Affect: + depressed affect, + constricted affect and mood congruent with affect Mood: + depressed mood ("probably worse today, I just want to isolate by myself") Thought Process: goal directed thought process Thought Content: + hopelessness and + self deprecation Suicidal Thoughts: denies suicidal thoughts (chronic, intermittent thoughts - denies so far this morning) Homicidal Thoughts: denies homicidal thoughts Hallucinations: no auditory hallucinations and no visual hallucinations Cognition: recent memory grossly intact, attention grossly intact and language grossly intact Estimated Intelligence: average estimated intelligence Insight: + impaired insight Judgement: + impaired judgement Vital Signs (Past 24 Hours) Last Vital Signs Temp 36.5 C 07/31/18 06:38 Pulse 70 07/31/18 06:39 Resp 18 07/31/18 06:38 BP 108/72 07/31/18 06:39 Pulse Ox 100 07/29/18 23:32 Results & Data Laboratory Results Laboratory Results - last 24 hr 07/31/18 07:13 Fasting Glucose 77 Triglycerides 63 Cholesterol 147 LDL Cholesterol, Calc 85 VLDL Cholesterol, Calc 13 HDL Cholesterol 49 Cholesterol/HDL Ratio 3 Current Inpatient Medications Current Inpatient Medications: Current Inpatient Medications Acetaminophen (Tylenol) 650 mg PO Q4H PRN PRN Reason: Headache or Minor Fever Stop: 08/28/18 22:07 Al Hydrox/Mg Hydrox/Simethicone (Maalox) 30 ml PO Q4H PRN PRN Reason: GI Upset Stop: 08/28/18 22:07 Bismuth Subsalicylate (Kaopectate) 15 ml PO PRN PRN PRN Reason: Loose Stool Stop: 08/28/18 22:07 Clonidine HCl (Catapres) 0.1 mg PO QPM [facility] Stop: 08/28/18 22:59 Last Admin: 07/30/18 21:22 Dose: 0.1 mg Documented by: Hydroxyzine HCl (Vistaril) 50 mg PO HSZ PRN PRN Reason: Insomnia Stop: 08/28/18 22:07 Last Admin: 07/30/18 21:27 Dose: 50 mg Documented by: Hydroxyzine HCl (Vistaril) 25 mg PO Q4H PRN PRN Reason: Anxiety Stop: 08/28/18 22:07 Lamotrigine (Lamictal) 100 mg PO BID [facility] Stop: 08/29/18 20:59 Last Admin: 07/31/18 09:36 Dose: 100 mg Documented by: Magnesium Hydroxide (Milk Of Magnesia) 30 ml PO DAILY PRN PRN Reason: Heartburn Stop: 08/28/18 22:07 Miscellaneous (Remove Nicoderm Patch) 1 ea N/A [facility] Stop: 08/29/18 20:59 Last Admin: 07/30/18 22:16 Dose: Not Given Documented by: Miscellaneous (Remove Nicoderm Patch) 1 ea N/A 1029 [facility] Stop: 08/30/18 10:28 Nicotine ([facility]oderm Cq) [facility] Stop: 08/30/18 10:29 Nicotine Polacrilex (Nicorette 2mg) 1 piece MT PRN PRN PRN Reason: nicotine cravings Stop: 08/29/18 10:04 Quetiapine Fumarate (Seroquel) 100 mg PO [facility] Stop: 08/29/18 21:59 Last Admin: 07/30/18 21:22 Dose: 100 mg Documented by: Sertraline HCl (Zoloft) 50 mg PO QAM [facility] Stop: 08/29/18 08:59 Last Admin: 07/31/18 09:35 Dose: 50 mg Documented by: Sodium Chloride ([place] Nasal) 1 - 2 sprays NA PRN PRN PRN Reason: Nasal Dryness/Congestion Stop: 08/28/18 22:07 Post Discharge Appointments Primary Care Physician Name Of Family Doctor: Dr. Lawrence Wilkins Primary Care Provider Appointment Comment: [address], [place] [address] Psychiatrist Name of Psychiatrist: [facility]'s Date of Appointment with Psychiatrist: 08/07/18 Time of Appointment with Psychiatrist: 1:40 p.m. Psychiatric Appointment Comment: [address] [facility], [place] [address] Therapist Name of Therapist: [facility] Therapist's Date of Therapist Appointment: 08/06/18 Time of Therapist Appointment: 11:00 a.m. Therapy Appointment Comment: [address], [place] [address] Driver Material Handler Name of Driver Material Handler: [facility] Phone Number for Driver Material Handler: [phone] Case Management Appointment Comment: [address] Other #1: Name of Aftercare Appointment: [facility] [place] - Nita Tineo Phone Number of Aftercare Appointment: [phone] Aftercare Appointment Comment: [address] [place] Contact Information Discharge Discharge Address: [facility] [place] [address] CPT Code CPT Code 02197
[2018-07-31] MEDS: NICOTINE 21 MG/24 HR TDSY TD SCH (11:39)
[2018-07-31] MEDS: cloNIDine HCl 0.1 MG TAB PO SCH (21:24)
[2018-07-31] MEDS: QUETIAPINE FUMARATE 100 MG TABLET PO SCH (21:27)
[2018-08-01] MEDS: lamoTRIgine 100 MG TAB PO SCH ×2 (09:07→21:06)
[2018-08-01] MEDS: SERTRALINE HCL 50 MG TABLET PO SCH (09:08)
[2018-08-01] MEDS: NICOTINE 21 MG/24 HR TDSY TD SCH (09:08)
--- NOTE | 2018-08-01 13:13 | Psychiatric Progress Note ---
Date of Service August 01, 2018 Impression / Recommendations Impression Pt states mood has improved today, reporting feeling on an "upswing". Pt denies feelings of elevated mood, euphoria, disorganized thought, or expansive thought - rather a contrast to the low mood he has been feeling for the past few days. Pt reportes he is "at a really good spot today." He denies SI today, but this has historically been a chronic concern for him. Mood is improved, but given this history, would suggest additional time in inpatient psychiatric treatment to ensure stability of mood and that SI does not recur. Pt has several significant risk factors, and will need to attempt to mitigate as many as possible to ensure discharge back to the community is a safe as possible given his history. Patient remains at high risk of decompensation and harm to self if discharged prematurely. (1) Suicide ideation: 07/30 - Patient w/ acute on chronic SI, admitted after reporting plan to overdose on all his medications. He reports having a large supply of medications at home, including Ambien. Recommend girlfriend bring in all old, discontinued meds for safe disposal due to overdose/suicide risk. Patient is somewhat ambivalent about this and about living in general. States he is struggling with the meaning of life, why people have to live and suffer if is the end for everyone. Would like to explore further here. 07/31 - Denies SI so far today, but admits thoughts generally develop when mood is lower, which he is reporting - Continue to address outpatient safety concerns, including supply of medication at home being used as "insurance plan" to end life (2) Bipolar II disorder with rapid cyclin/7 - Diagnosed during 05/2018 hospitalization. Mood still unstable, will increase lamotrigine to 100mg bid, and quetiapine to 100mg HS to target mood instability and sleep. -Discussed risks, benefits and side effects of these medications, including metabolic syndrome and need for lab monitoring. He denies that he'd had fasting labs done, so will order FLP and FG for tomorrow for monitoring on an atypical. - Continue sertraline 50mg daily. He asked about increasing it, but advised against it due to risk of destabilization, although could consider titration in the future once mood is more stable (if dep sx or anxiety still problematic). 07/31 - Mood today is worsened from yesterday, states sleep was adequate last evening with the exception of distressing dreams - Continue current medication regimen 08/01 - Continue current medication regimen - Continue to encourage appropriate safety planning - ideally removing excess medications from home (3) Tobacco abuse disorder: 07/30 - Offer patch, gun and smoking cessation education. F/u with OP provider at [facility]. Inventory Assets Strengths: Stable housing, supportive girlfriend Needs: improved coping skills Risk Factors Assessment Male: Yes : No Do You Have Access To A Gun?: No Health Problems: No Mental Health Diagnoses: Yes Substance Use Disorders: Yes Previous Attempt: No Family History of Suicide: Yes Previous Psychiatric Hospitalization: Yes Hopelessness: Yes Smoker: Yes Protective Factors Assessment [employer] Beliefs: No : No Responsible for Young Children: No Employed: No Stable Relationships: No Supportive Family: No Good Rapport with Provider: Yes Interval History Identifying Information PATRICIA KIMBROUGH is a 22-year-old M who currently lives in [place], has a history of bipolar 2, cannabis abuse, and hospitalization 3 months ago for suicidal ideation, and was admitted on 07/29/18 22:08 on a 201 voluntary commitment for suicidality. Chief Complaint "Doing pretty well today". Review of Systems Notes Constitutional: Reports difficulty sleeping and fatigue Cardiovascular: denied Respiratory: denied Gastrointestinal: denied Neurological: denied Psychiatric: denies symptoms other than stated above Total of at least 10 systems reviewed, pertinent positives as above and in HPI. Sleep Information Total Hours of Sleep: 7.25 Sleep Comments: pt NPO during the night. pt on q-15 minute checks Meal Information Percent Meal Consumed - Breakfast: 100 Percent Meal Consumed - Lunch: 25 Percent Meal Consumed - Dinner: 100 Subjective Subjective Patient was seen & assessed and interval progress reviewed with Nursing. Staff reports the patient has presented as somewhat irritable since yesterday. He did admit to staff reports a fleeting SI. Patient was seen today to assess progress since admission. He does report an improvement in mood yesterday feeling "pretty well." Patient states he has been attending groups regularly, particularly enjoying a group on "auctioning of feelings." He states it was helpful for him to assess his priorities in regards to his emotions. Patient states one of these words was "balance" which he feels he needs more of. Patient shares thoughts on his desire for balance with regard to energy and mood. He denies suicidal thoughts today and states sleep was better last evening. Patient is beginning to feel more comfortable with the idea of discharge, but feels that today was the first day he was in a "good spot." Patient denies any other needs or concerns today. Physical Exam Psychiatric Orientation: alert, oriented x 3 and cooperative Apperance: appropriately dressed, appropriately groomed and appeared stated age Eye Contact: good eye contact Motor Behavior: steady gait and station and no abnormal motor movements Speech: normal rate/rhythm/volume of speech Affect: + depressed affect (less so today) "feeling pretty well today" and "better" Thought Process: goal directed thought process and clear/coherent thought process Thought Content: reality based without delusions Suicidal Thoughts: denies suicidal thoughts (denies today, though thoughts are historically chronic) Homicidal Thoughts: denies homicidal thoughts Hallucinations: no auditory hallucinations and no visual hallucinations Cognition: recent memory grossly intact, remote memory grossly intact, attention grossly intact and language grossly intact Estimated Intelligence: average estimated intelligence Insight: + fair insight Judgement: + fair judgement Vital Signs (Past 24 Hours) Last Vital Signs Temp 36.6 C 08/01/18 06:00 Pulse 60 08/01/18 06:00 Resp 16 08/01/18 06:00 BP 100/65 08/01/18 06:00 Pulse Ox 100 07/29/18 23:32 Results & Data Current Inpatient Medications Current Inpatient Medications: Current Inpatient Medications Acetaminophen (Tylenol) 650 mg PO Q4H PRN PRN Reason: Headache or Minor Fever Stop: 08/28/18 22:07 Al Hydrox/Mg Hydrox/Simethicone (Maalox) 30 ml PO Q4H PRN PRN Reason: GI Upset Stop: 08/28/18 22:07 Bismuth Subsalicylate (Kaopectate) 15 ml PO PRN PRN PRN Reason: Loose Stool Stop: 08/28/18 22:07 Clonidine HCl (Catapres) 0.1 mg PO QPM [facility] Stop: 08/28/18 22:59 Last Admin: 07/31/18 21:24 Dose: 0.1 mg Documented by: Hydroxyzine HCl (Vistaril) 50 mg PO HSZ PRN PRN Reason: Insomnia Stop: 08/28/18 22:07 Last Admin: 07/31/18 21:24 Dose: 50 mg Documented by: Hydroxyzine HCl (Vistaril) 25 mg PO Q4H PRN PRN Reason: Anxiety Stop: 08/28/18 22:07 Lamotrigine (Lamictal) 100 mg PO BID [facility] Stop: 08/29/18 20:59 Last Admin: 08/01/18 09:07 Dose: 100 mg Documented by: Magnesium Hydroxide (Milk Of Magnesia) 30 ml PO DAILY PRN PRN Reason: Heartburn Stop: 08/28/18 22:07 Miscellaneous (Remove Nicoderm Patch) 1 ea N/A HS [facility] Stop: 08/29/18 20:59 Last Admin: 07/31/18 21:33 Dose: Not Given Documented by: Miscellaneous (Remove Nicoderm Patch) 1 ea N/A 1029 [facility] Stop: 08/30/18 10:28 Last Admin: 08/01/18 10:34 Dose: 1 ea Documented by: Nicotine (Nicoderm Cq) 21 mg TD QAM [facility] Stop: 08/30/18 10:29 Last Admin: 08/01/18 09:08 Dose: 21 mg Documented by: Nicotine Polacrilex (Nicorette 2mg) 1 piece MT PRN PRN PRN Reason: nicotine cravings Stop: 08/29/18 10:04 Quetiapine Fumarate (Seroquel) 100 mg PO [facility] Stop: 08/29/18 21:59 Last Admin: 07/31/18 21:27 Dose: 100 mg Documented by: Sertraline HCl (Zoloft) 50 mg PO QAM [facility] Stop: 08/29/18 08:59 Last Admin: 08/01/18 09:08 Dose: 50 mg Documented by: Sodium Chloride ([place] Nasal) 1 - 2 sprays NA PRN PRN PRN Reason: Nasal Dryness/Congestion Stop: 08/28/18 22:07 Post Discharge Appointments Primary Care Physician Name Of Family Doctor: Dr. Lawrence Wilkins Primary Care Time of Appointment with PCP: follow up as needed. Provider Appointment Comment: [address], [place] [address] Psychiatrist Name of Psychiatrist: [facility]rist's Date of Appointment with Psychiatrist: 08/07/18 Time of Appointment with Psychiatrist: 1:40 p.m. Psychiatric Appointment Comment: [address], [place] [address] Therapist Name of Therapist: [facility] Therapist's Date of Therapist Appointment: 08/06/18 Time of Therapist Appointment: 11:00 a.m. Therapy Appointment Comment: [address], [place] [address] Mobile Phlebotomist Name of Mobile Phlebotomist: [facility] [place] Phone Number for Mobile Phlebotomist: [phone] Date of Appointment with Mobile Phlebotomist: 08/05/18 Time of Appointment with Mobile Phlebotomist: 9am Case Management Appointment Comment: [address] [place] Other #1: Name of Aftercare Appointment: [facility] [place] - Nita Tineo Phone Number of Aftercare Appointment: [phone] Aftercare Appointment Comment: [address] [employer] [address] [place] Contact Information Discharge Discharge Address: [facility] [place] [address] CPT Code CPT Code 58431
[2018-08-01] MEDS: NICOTINE 14 MG/24 HR PATCH TD SCH (16:02)
[2018-08-01] MEDS: cloNIDine HCl 0.1 MG TAB PO SCH (21:05)
[2018-08-01] MEDS: QUETIAPINE FUMARATE 100 MG TABLET PO SCH (21:06)
[2018-08-02] MEDS: NICOTINE 21 MG/24 HR TDSY TD SCH (08:58)
[2018-08-02] MEDS: SERTRALINE HCL 50 MG TABLET PO SCH (08:58)
[2018-08-02] MEDS: lamoTRIgine 100 MG TAB PO SCH (08:58)
--- NOTE | 2018-08-02 10:06 | Discharge Summary ---
Date of Service August 02, 2018 History of Present Illness Patient is known to us from a recent hospitalization on our unit in April for mood lability and suicidality. At that time, he was diagnosed with bipolar type II, sertraline was decreased and lamotrigine added, he had a family meeting with his girlfriend, and was referred for outpatient therapy and psychiatric care. He presented to the ER last night reporting depression that had worsened over the past couple of days, difficulty thinking and expressing his thoughts, and suicidal ideation with a plan to overdose on his medications. He saw a clinician at [facility], who sent him to the ER. He reported he was taking his medications as prescribed, and did not want his parents contacted. He reported difficulty sleeping, racing thoughts, and worsening depression for at least the past week. He identified his girlfriend is his primary support, and said he does not speak with his parents often, and they live in [place]. Reports ongoing alcohol and cannabis use, but drug screen was negative. TSH was normal, and lamotrigine level is pending. His therapist contacted the clinical social work aide this morning, stating he has significant stressors, and chronic suicidal ideation. He is currently on a GI bill for school, but stopped attending class es 2 months ago, and may need to pay back his costs. He is also in an open relationship which is difficult for him. He feels ostracized from his family due to his mental health issues and they are not supportive. He also has childhood trauma but is resistant to engaging in trauma work. On my assessment, he reports worsening mood several days prior to admission, stating he is "really sick of the constant mood shifts." He describes mood swings that occur daily- weekly, and "more major ones" that happen every few weeks. He reports years of periods of elevated mood where it is "really up, like I've taken a lot of Adderall or coke, just really good and happy," energy is high, and feels "on top of the world." Sleep is decreased, and they last 3-7 days. These alternate with frequent episodes of depression, amotivation, "not functional, just really sad," with significant irritability. He has SI that typically occurs when he is "down," and he usually doesn't talk about them. Sat. night he "almost got out of bed and grabbed my medicine and took it all." He didn't do it because "my girlfriend was in the other room, and just didn't want her to come in the room in the morning and find me motionless in bed." Reports his "mind was going, just felt really bad, couldn't think, couldn't make sense of things." He was crying and "wanted everything to end." States he and his GF live together but have separate rooms and she brings her girlfriend over sometimes to spend the night. He denies that this situation contributed to his mood or SI, but says he didn't go talk to his girlfriend as he doesn't want her to worry. He denies that he has anyone he can talk to when overwhelmed, stating "I don't have a good sense of trust of people." He states he hasn't officially withdrawn from school but "just stopped going to classes" a couple of months ago. He states it is "complicated" because he has the [employer] bill, and already withdrew once, so thinks he will have to pay back his housing and tuition, which would be "way too much to pay, might be better to accept the fails." He thinks he has been on lamotrigine 75mg bid for about a month, never on a higher dose; quetiapine for about a month, and c lonidine for about a month (for focus and anxiety; previously on Adderall). Physical Exam Psychiatric Orientation: oriented x 3 Apperance: appropriately dressed and appropriately groomed Eye Contact: + fair eye contact Motor Behavior: steady gait and station Speech: normal rate/rhythm/volume of speech Affect: euthymic affect "Pretty good. Stable. 8 1/2 out of 10." Thought Process: goal directed thought process, linear/logical thought process and clear/coherent thought process Thought Content: reality based without delusions Suicidal Thoughts: denies suicidal thoughts Notes a long history of intermittent fleeting suicidal thoughts, but none currently. Homicidal Thoughts: denies homicidal thoughts Hallucinations: + auditory hallucinations Cognition: recent memory grossly intact, remote memory grossly intact, attention grossly intact and language grossly intact Estimated Intelligence: + above average estimated intelligence Insight: good insight Judgement: good judgement Vital Signs (Past 24 Hours) Last Vital Signs Temp 36.5 C 08/02/18 06:00 Pulse 73 08/02/18 06:00 Resp 16 08/02/18 06:00 BP 100/65 08/02/18 06:00 Pulse Ox 100 07/29/18 23:32 Principal Diagnosis Bipolar 2 Disorder, Depressed Psychiatric Data During the course of hospitalization the patient was offered various modalities of psychiatric treatment and education. These included individual, group, activity, and milieu therapies. In addition, several changes in the patient's medication regimen were made during hospitalization. Specifically, his dose of lamotrigine was increased to a dose of 100 mg twice a day, and his dose of quetiapine was increased from 50 mg a day at bedtime to 100 mg a day at bedtime. The patient appeared to tolerate these medication changes well and reported that he felt that he had had a "mood reset" so that his mood felt more stable and his feelings of depression resolved. He was an active participant in the groups, and particularly in activity therapies, such as exercise group prior to the admission he had been very concerned that he would lose his [employer] scholarship and might have to pay back money, and we were able to help address these issues through the office of disability as a [place] [employer]. As noted above, the patient reports that he tend to have chronic, recurring thoughts of suicide. Usually these thoughts are fleeting and he is able to manage them. Prior to the admission, however, the thoughts were more consistent and were coupled with thoughts of overdosing on all of his medications. However, he notes that he is not sure that he ever had any actual suicidal intent, but was worried because of the increased intensity of the thoughts. The patient also tells us that he was able to use coping strategies that he learned during his previous hospitalization at [facility], in April 2018. Specifically, his successful coping strategies include talking to his girlfriend, spending time with other friends, taking walks with his dog, exercising, and accessing his outpatient treatment provider. This time, the patient's mood improved and stabilized. He reports that his suicidal thoughts diminished and then stopped during the stay. He reports that he feels that he is sleeping well, notes good appetite, believes that he is tolerating his medications well, and reports that he is feeling fully prepared to return to the community for continued treatment on an outpatient basis. The patient is future oriented. He is able to enumerate specific plans for finding a job here in [facility]. He will be applying for a retrospective medical leave for the spring. 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 Although the patient says that he has not previously made suicide attempts, he does acknowledge that he has taken "blocked things out and escape." Patient also reports that he feels that he has been doing "really good, for the most part," since being discharged from the behavioral health unit in April. He does not identify any precipitating factor in the current episode of depression, but says only that it began approximately a week or so ago and has now resolved. Day of Discharge Assessment On the day of discharge the patient was found to be pleasant and cooperative. He was appropriately dressed and groomed and there is no evidence that he has been care. He describes his mood as "pretty good. 8-1/2 out of 10." The patient's affect is generally euthymic. He smiles and laughs appropriately several times during the interview. The patient's thought processes demonstrate tight associations. There is no evidence of flight of ideas. The patient's speech is spontaneous and delivered at a normal rate and. There is no evidence of any delusional material and the patient's thought content. He also reports that he is not experiencing any perceptual disturbances. The patient is able to accurately describe his symptoms of cristofer and depression, and is aware of the need to report these as they may occur to his outpatient treatment provider. He also tells us that he realizes that while he does not like to come into the hospital, he knows that it is a way of assuring his safety and a way of ac hieving rapid stabilization during periods of possible decompensation. He reports that although he has a long history of recurrent fleeting thoughts of suicide, he is not currently having any suicidal thoughts and is able to clearly describe his safety plan for the community. (See above.) The patient also reports that he is having no thoughts of causing physical harm to the person or property of others. Transition of Care Transition Of Care Record: was reviewed with the patient Advance Directives Advance Directives Information Provided: Yes Advance Directives: No Mental Health Advance Directive: No Advance Directives on File: No Living Will: No Power of Medical Lab Tech Instructor: No Advance Directives Reason:: Declines as Mental Health Visit. Risk Factors Assessment Male: Yes : No Do You Have Access To A Gun?: No Health Problems: No Mental Health Diagnoses: Yes Substance Use Disorders: Yes Previous Attempt: No Family History of Suicide: Yes Previous Psychiatric Hospitalization: Yes Hopelessness: Yes Smoker: Yes Protective Factors Assessment Anabaptist Beliefs: No : No Responsible for Young Children: No Employed: No Stable Relationships: No Supportive Family: No Good Rapport with Provider: Yes Tobacco Cessation at Discharge Tobacco Cessation Medication Prescribed at Discharge: Offered & Prescribed Antipsychotic Medications The patient is being prescribed quetiapine 100 mg at bedtime as a mood stabilizer. Total Time Total Time Spent: Greater Than 30 Minutes Total Time Includes: Examination of the patient, Discharge Planning, Medication Reconciliation and Communication with other providers Discharge Data Consultations 07/29/18 22:30 ED Decision to Admit Stat Lab Results 07/29/18 07/29/18 07/29/18 17:51 17:51 18:53 WBC 5.95 RBC 4.57 L Hgb 14.5 Hct 42.5 MCV 93.0 MCH 31.7 MCHC 34.1 RDW Std Deviation 40.0 RDW Coeff of [place] 11.9 Plt Count 250 MPV 10.3 Immature Gran % (Auto) 0.2 Neut % (Auto) 62.8 Lymph % (Auto) 30.8 [place] % (Auto) 5.2 Eos % (Auto) 0.3 Baso % (Auto) 0.7 Immature Gran # (Auto) 0.01 Neut # (Auto) 3.74 Lymph # (Auto) 1.83 [place] # (Auto) 0.31 Eos # (Auto) 0.02 Baso # (Auto) 0.04 Sodium Potassium Chloride Carbon Dioxide Anion Gap BUN Creatinine Est Cr Clr Drug Dosing Est GFR ( Amer) Est GFR (Non-Af Amer) BUN/Creatinine Ratio Glucose Fasting Glucose Calcium Total Bilirubin AST ALT Alkaline Phosphatase Total Protein Albumin Globulin Albumin/Globulin Ratio Triglycerides Cholesterol LDL Cholesterol, Calc VLDL Cholesterol, Calc HDL Cholesterol Cholesterol/HDL Ratio TSH Urine Color Yellow Urine Appearance Clear Urine pH 7.5 Ur Specific [place] 1.018 Urine Protein Negative Urine Glucose (UA) Negative Urine Ketones Negative Urine Blood Negative Urine Nitrite Negative Urine Bilirubin Negative Urine Urobilinogen Negative Ur Leukocyte Esterase Negative Salicylates Urine Opiates Screen Neg Ur Methadone, Qual Neg Acetaminophen Urine Barbiturates Neg Ur Phencyclidine (PCP) Neg U Amphetamin/Meth Scrn Neg MDMA (Ecstasy) Screen Neg U Benzodiazepines Scrn Neg Ur Cocaine Metabolite Neg U Marijuana (THC) Screen Neg Ethyl Alcohol mg/dL 07/29/18 07/29/18 07/29/18 18:53 18:53 18:53 WBC RBC Hgb Hct MCV MCH MCHC RDW Std Deviation RDW Coeff of [place] Plt Count MPV Immature Gran % (Auto) Neut % (Auto) Lymph % (Auto) [place] % (Auto) Eos % (Auto) Baso % (Auto) Immature Gran # (Auto) Neut # (Auto) Lymph # (Auto) [place] # (Auto) Eos # (Auto) Baso # (Auto) Sodium 140 Potassium 3.7 Chloride 106 Carbon Dioxide 28 Anion Gap 6.0 BUN 10 Creatinine 1.10 Est Cr Clr Drug Dosing 98.1 Est GFR ( Amer) 109.1 Est GFR (Non-Af Amer) 94.1 BUN/Creatinine Ratio 9.0 L Glucose 89 Fasting Glucose Calcium 8.9 Total Bilirubin 0.5 AST 33 ALT 31 Alkaline Phosphatase 64 Total Protein 7.3 Albumin 4.2 Globulin 3.1 Albumin/Globulin Ratio 1.4 Triglycerides Cholesterol LDL Cholesterol, Calc VLDL Cholesterol, Calc HDL Cholesterol Cholesterol/HDL Ratio TSH 1.660 Urine Color Urine Appearance Urine pH Ur Specific [place] Urine Protein Urine Glucose (UA) Urine Ketones Urine Blood Urine Nitrite Urine Bilirubin Urine Urobilinogen Ur Leukocyte Esterase Salicylates < 1.7 L Urine Opiates Screen Ur Methadone, Qual Acetaminophen < 2 L Urine Barbiturates Ur Phencyclidine (PCP) U Amphetamin/Meth Scrn MDMA (Ecstasy) Screen U Benzodiazepines Scrn Ur Cocaine Metabolite U Marijuana (THC) Screen Ethyl Alcohol mg/dL < 3.0 07/31/18 07:13 WBC RBC Hgb Hct MCV MCH MCHC RDW Std Deviation RDW Coeff of [place] Plt Count MPV Immature Gran % (Auto) Neut % (Auto) Lymph % (Auto) [place] % (Auto) Eos % (Auto) Baso % (Auto) Immature Gran # (Auto) Neut # (Auto) Lymph # (Auto) [place] # (Auto) Eos # (Auto) Baso # (Auto) Sodium Potassium Chloride Carbon Dioxide Anion Gap BUN Creatinine Est Cr Clr Drug Dosing Est GFR ( Amer) Est GFR (Non-Af Amer) BUN/Creatinine Ratio Glucose Fasting Glucose 77 Calcium Total Bilirubin AST ALT Alkaline Phosphatase Total Protein Albumin Globulin Albumin/Globulin Ratio Triglycerides 63 Cholesterol 147 LDL Cholesterol, Calc 85 VLDL Cholesterol, Calc 13 HDL Cholesterol 49 Cholesterol/HDL Ratio 3 TSH Urine Color Urine Appearance Urine pH Ur Specific [place] Urine Protein Urine Glucose (UA) Urine Ketones Urine Blood Urine Nitrite Urine Bilirubin Urine Urobilinogen Ur Leukocyte Esterase Salicylates Urine Opiates Screen Ur Methadone, Qual Acetaminophen Urine Barbiturates Ur Phencyclidine (PCP) U Amphetamin/Meth Scrn MDMA (Ecstasy) Screen U Benzodiazepines Scrn Ur Cocaine Metabolite U Marijuana (THC) Screen Ethyl Alcohol mg/dL Hospital Course (1) Suicide ideation: 07/30 - Patient w/ acute on chronic SI, admitted after reporting plan to overdose on all his medications. He reports having a large supply of medications at home, including Ambien. Recommend girlfriend bring in all old, discontinued meds for safe disposal due to overdose/suicide risk. Patient is somewhat ambivalent about this and about living in general. States he is struggling with the meaning of life, why people have to live and suffer if is the end for everyone. Would like to explore further here. 07/31 - Denies SI so far today, but admits thoughts generally develop when mood is lower, which he is reporting - Continue to address outpatient safety concerns, including supply of medication at home being used as "insurance plan" to end life (2) Bipolar II disorder with rapid cyclin/7 - Diagnosed during 05/2018 hospitalization. Mood still unstable, will i ncrease lamotrigine to 100mg bid, and quetiapine to 100mg HS to target mood instability and sleep. -Discussed risks, benefits and side effects of these medications, including metabolic syndrome and need for lab monitoring. He denies that he'd had fasting labs done, so will order FLP and FG for tomorrow for monitoring on an atypical. - Continue sertraline 50mg daily. He asked about increasing it, but advised against it due to risk of destabilization, although could consider titration in the future once mood is more stable (if dep sx or anxiety still problematic). 07/31 - Mood today is worsened from yesterday, states sleep was adequate last evening with the exception of distressing dreams - Continue current medication regimen 5/9 - Continue current medication regimen - Continue to encourage appropriate safety planning - ideally removing excess medications from home 08/02 -The patient's mood has been stable during the most of the hospitalization. -Mood is reportedly 8 1/2 out of 10 for at least the past two days. -Tolerating medication adjustments well. -Suicidal thoughts are no longer present. (3) Tobacco abuse disorder: 07/30 - Offer patch, gun and smoking cessation education. F/u with OP provider at [place]. 08/02 -Will continue smoking cessation efforts on an outpatient basis. Post Discharge Appointments Primary Care Physician Name Of Family Doctor: Dr. Lawrence Wilkins Primary [facility] Time of Appointment with PCP: follow up as needed. Provider Appointment Comment: [address], [place] [address] Psychiatrist Name of Psychiatrist: [facility] Date of Appointment with Psychiatrist: 08/07/18 Time of Appointment with Psychiatrist: 1:40 p.m. Psychiatric Appointment Comment: [address] [facility], [place] [address] Therapist Name of Therapist: [facility] The[facility]'s Date of Therapist Appointment: 08/06/18 Time of Therapist Appointment: 11:00 a.m. Therapy Appointment Comment: [address], [place] [address] General Merchandise Salesperson Name of General Merchandise Salesperson: [facility] Alexys Barnes Phone Number for General Merchandise Salesperson: [phone] Date of Appointment with General Merchandise Salesperson: 08/05/18 Time of Appointment with General Merchandise Salesperson: 9am Case Management App[facility]ment [facility] [address] [facility] Smoking Cessation Counseling Tobacco Cessation Medication Prescribed at Discharge: Offered & Prescribed Contact Information Discharge Discharge Address: [address] [place], [place] [address] [address] Discharge Plan Discharge Items Patient Disposition: Home - Self-Care Reason For Visit: BIPOLAR II Discharge Diagnosis: Bipolar II Discharge Goals: Improve disease control, Improve function, Learn about illness, Prevent disease and Specific goals Specific Goals: Use coping skills and safety plan Activity: Resume your previous activity Non-emergency contact: Psychiatrist and Therapist Call non-emergency contact if: you have any medication questions and your symptoms worsen Follow-up/Referrals: PCP,NO [Primary Care Provider] - Diet: Regular Addtl Provider Instructions: If other components of your safety plan seem not to be working, or if active suicidal intent develops, come to the hospital emergency department to be evaluated. Prescriptions: New nicotine [Nicoderm CQ] 21 mg/24 hr Patch 24 Hour 21 mg transdermal QAM Qty: 14 RF: 0 clonidine HCl 0.1 mg Tablet 0.1 mg PO QPM Qty: 10 RF: 0 quetiapine 100 mg Tablet 100 mg PO HS Qty: 10 RF: 0 hydroxyzine HCl 25 mg Tablet 50 mg PO HSZ PRN (Reason: Sleep) Qty: 14 RF: 0 lamotrigine 100 mg Tablet 100 mg PO BID Qty: 30 RF: 0 Remove Nicoderm Patch 1 ea N/A 1029 Qty: 1 RF: 0 Remove Nicoderm Patch 1 ea N/A HS Qty: 1 RF: 0 Continued sertraline 50 mg tablet 50 mg PO DAILY RF: 0 Discontinued clonidine HCl 0.1 mg tablet 0.1 mg PO ONCE HS RF: 0 lamotrigine 25 mg tablet 75 mg PO BID RF: 0 quetiapine 50 mg tablet 50 mg PO HS RF: 0 Stand-Alone Forms: [facility] Discharge Orders: Discharge Order (Routine); Ordered 08/02/18 Ordered By: Eric Tony Admission Data Admit Date/Time: 07/29/18 22:08 Attending Provider: Aye Churchill Admit Provider: Sachi Milton Primary Care Provider: PCP,NO Other Providers: Sachi Milton Service: Psychiatry Other Interventions: PSY Interdisciplinary Discharge Planning Last Done: 08/02/18 08:04
== END 2018-08-02 12:20 | disposition home or self-care (01) | DRG 885 ==
LOC: ED 17:35 → 3S 22:08